=== PATIENT | male | born 1980 | race Caucasian/White ===

== ENCOUNTER 2018-11-01 11:37 | Emergency (ER) | payer SELFPAY ==
[2018-11-01 11:48] VITALS: BP 147/89; PULSE 90; RESP 16; TEMP 36.1; O2SAT 98
--- NOTE | 2018-11-01 12:05 | ED.GENADUL_ITS ---
Discharge Plan Disposition Patient Disposition: HOME Condition: Good Discharge Details Chief Complaint: Orthopedic Clinical Impression: Back pain Primary Care Provider: Charissa Vann ED Provider: Esvin Coats Home Meds and New Rx's Prescriptions: New cyclobenzaprine 10 mg tablet 10 mg PO TID Qty: 14 RF: 0 acetaminophen [Mapap Extra Strength] 500 MG tablet 1,000 mg PO Q6H 5 Days Qty: 60 RF: 0 lidocaine [Lidoderm] 1 PATCH patch 1 patch Topical Q24H Qty: 4 RF: 0 ibuprofen [Motrin IB] 200 MG tablet 600 mg PO Q6H 5 Days Qty: 60 RF: 0 Discontinued naproxen 500 MG tablet 500 mg PO BID PRN (Reason: Pain) Qty: 20 RF: 0 cyclobenzaprine 10 MG tablet 10 mg PO TID PRN (Reason: Muscle Spasm) Qty: 12 RF: 0 Discharge Instructions Instructions: Back Pain (ED) Additional Instructions: At this time you show no signs of significant spinal cord compression. You do show evidence of a notable back strain. Please use the Lidoderm patch, Tylenol, and Motrin as directed. Please use the Flexeril as directed and as needed for back pain or spasm. Do not operate heavy machinery, firearms, or swim while taking the Flexeril. No heavy lifting greater than 5 to 10 pounds for the next 1 to 2 weeks. If you notice any worsening of your symptoms, or any new symptoms such as vomiting, diarrhea, fever, chills, shortness of breath, chest pain, numbness, weakness, numbness or tingling in the groin or fainting , please return immediately to the emergency department for reevaluation. Please follow up with your primary care provider as soon as possible for reassessment and reevaluation. As always, it was a pleasure participating in your medical care today. Stand Alone Forms: Work Release Discharge Data Discharge Date/Time-TO BE ENTERED AT DEPARTURE: 11/01/18 12:46 Medical Decision Making This is a 38-year-old male who presents today for evaluation of back pain. Patient states that he is throwing his child up into the air when he caught her and felt mild pain in his back which is gradually worsened and become more severe. It is worsened with movement, bending over and lifting. Physical exam demonstrates notable left-sided paraspinal spasm. No midline focal tenderness. Neurologic exam demonstrates no focal neurologic deficits, no saddle anesthesia, he has good rectal tone, good strength, movement and reflexes. Signs and symptoms appear clinically consistent with a notable paraspinal muscle spasm. The patient may have mild radiculopathy, but there is no clinical evidence of spinal cord compression at this time. We did discuss risks and benefits of imaging, and at this time we will hold off in any additional imaging. With no fall, no neurologic deficits, and no signs of cauda equina syndrome clinically at this time I feel that no emergent radiographic imaging is currently indicated. We will recommend Lidoderm patch, NSAIDs, Flexeril, for treatment of the pain. Discussed the importance of no heavy lifting, and rest. Discussed red flags for which to return as well as the importance of close follow-up with his PCP. I have extensively reviewed the t reatment plan and discharge instructions with the patient and their family. I have addressed all patient concerns at this time. The patient and family was made aware of what symptoms to monitor for that would warrant a return to the emergency department. Discussed the plan with the patient and family, they demonstrate verbal understanding and agreement with our assessment and plan at this time. HPI General Date/Time Provider Initiated Documentation: 11/01/18 11:39 . HPI Narrative: This is a pleasant 38-year-old male who presents today for evaluation of low back pain. He states that yesterday he was throwing his child up into the air when he tried to catch the child and felt a significant strain on his back. He feels he may have heard a mild pop at that time. After that he has had notable pain in his back, particularly on the left-hand side. He denies any bowel or bladder incontinence, he denies any dysuria or hematuria. He denies any numbness or tingling in his legs or groin he denies any weakness in his legs. He denies any chest or abdominal pain. Pain is made worse with bending and lifting. Improved only slightly by NSAIDs. He has no other complaints at this time. No other modifying factors. Related Data Home Medications Medication Instructions Recorded Confirmed acetaminophen [Mapap Extra 1,000 mg PO Q6H 5 Days #60 tab 11/01/18 Strength] cyclobenzaprine 10 mg PO TID #14 tab 11/01/18 ibuprofen [Motrin Ib] 600 mg PO Q6H 5 Days #60 tab 11/01/18 lidocaine [Lidoderm] 1 patch TOPICAL Q24H #4 patch 11/01/18 Previous Rx's Medication Instructions Recorded acetaminophen [Mapap Extra 1,000 mg PO Q6H 5 Days #60 tab 11/01/18 Strength] cyclobenzaprine 10 mg PO TID #14 tab 11/01/18 ibuprofen [Motrin Ib] 600 mg PO Q6H 5 Days #60 tab 11/01/18 lidocaine [Lidoderm] 1 patch TOPICAL Q24H #4 patch 11/01/18 Allergies Allergy/AdvReac Type Severity Reaction Status Date / Time No Known Allergies Allergy Unverified 02/25/17 19:28 General Stated Complaint: Orthopedic FADIA: 4 Review of Systems Review of Systems All systems reviewed & are unremarkable except as noted in HPI and below PFSH Social History Smoking/Tobacco Use Status: Current every day Tobacco Type: cigarettes Drug use: Never Do you feel safe in your relationship?: Yes Exam Narrative Exam Narrative: 1.Const: Well-nourished, Well-developed, appearing stated age 2.Eyes: PERRL, no conjunctival injection, and symmetrical lids. 3.ENT: Atraumatic external nose and ears. Moist MM. Neck: Symmetric, trachea midline, No thyromegaly. 4.CVS: +S1/S2, No murmurs or gallops. Peripheral pulses 2+ and equal in all extremities. Brisk capillary refill in all extremities. 5.RESP: Unlabored respiratory effort. Clear to auscultation bilaterally. No wheezes rales or rhonchi 6.GI: Soft, Nontender/Nondistended, No hepatosplenomegaly. No guarding or rebound. 7.MSK: Normocephalic/Atraumatic, Extremities w/o deformity or ttp No cyanosis or clubbing, Normal movement of all extremities. No midline tenderness to palpation over the CTLS spine. Normal ROM in flexion, extension, side bend, and rotation. Patient has +5 out of 5 strength in the lower extremities in dorsiflexion and plantarflexion, knee flexion and extension, hip flexion and extension. There is +2 over 2 dorsalis pedis pulses bilaterally. There is normal sensation to the skin with light touch at the foot, knee, and hip. Normal saddle sensation. Good sensation over the deep sural nerve area bilaterally. Rectal exam demonstrates good perirectal tone, normal perirectal sensation. Reflexes are +2 over 4 in the patellar reflex bilaterally. +5 out of 5 strength in the medial, ulnar, radial nerve distribution bilaterally in the hands as well as intact light touch sensation to these dermatomes on the hands. Notable paraspinal muscle spasm specifically on the left and side over T10-L2. Straight leg raise does worsen the patient's pain bilaterally, however there is no associated numbness or tingling with straight leg raise. 8.Skin: Warm, Dry. No rashes or lesions. 9.Neuro: occupational health coordinator II-XII grossly intact. Sensation grossly intact, no focal neurologic deficits. 10.Psych: (AAO) x3. Appropriate mood and affect Course Vital Signs Temperature 36.1 C L 11/01/18 11:48 Pulse 90 11/01/18 11:48 Respiratory Rate 16 11/01/18 11:48 Blood Pressure 147/89 H 11/01/18 11:48 Pulse Oximetry 98 11/01/18 11:48 Temperature 36.1 C L 11/01/18 11:48 Temperature Source Temporal Artery Scan 11/01/18 11:48 Pulse 90 11/01/18 11:48 Respiratory Rate 16 11/01/18 11:48 Blood Pressure 147/89 H 11/01/18 11:48 Pulse Oximetry 98 11/01/18 11:48 Oxygen Delivery Method Room Air 11/01/18 11:48 Oxygen Flow Rate 0 11/01/18 11:48
[2018-11-01] MEDS: Dexamethasone 4 MG TAB 12 MG PO (12:21)
[2018-11-01] MEDS: Lidocaine 5% Patch 1 PATCH TP (12:22)
[2018-11-01] MEDS: Ketorolac 30 MG/ML VIAL IM (12:33)
[2018-11-01 12:41] VITALS: BP 147/89; RESP 14
== END 2018-11-01 12:46 | disposition home or self-care (01) ==
LOC: ER 12:36
PROVIDERS: Emergency Provider Student in an Organized Health Care Education/Training Program; PCP Nurse Practitioner Family
DX: M54.5 Low back pain (principal); S39.012A Strain of muscle, fascia and tendon of lower back, initial encounter; X50.9XXA Other and unspecified overexertion or strenuous movements or postures, initial encounter; M62.830 Muscle spasm of back
CPT/HCPCS: 96372; 99284; 99283; J1885; J8540

== ENCOUNTER 2019-01-27 15:47 | Emergency (ER) | payer SELFPAY ==
[2019-01-27 15:50] VITALS: BP 156/91; PULSE 90; RESP 18; TEMP 36.1; O2SAT 97
--- NOTE | 2019-01-27 16:10 | ED.GENADUL_ITS ---
Discharge Plan Disposition Patient Disposition: HOME Condition: Improving Discharge Details Chief Complaint: Nausea/Vomit/Diar Clinical Impression: Gastroenteritis Primary Care Provider: Charissa Vann ED Provider: Chris Gamboa Home Meds and New Rx's Prescriptions: New ondansetron HCl [Zofran] 4 mg tablet 4 mg PO QID PRN (Reason: nausea and vomiting) Qty: 10 RF: 0 famotidine 20 mg tablet 20 mg PO DAILY Qty: 14 RF: 0 Discharge Instructions Instructions: Gastroenteritis (ED) Additional Instructions: Small, frequent sips of fluids to maintain hydration. Zofran and as needed for nausea, as prescribed. Please take famotidine as prescribed for 2 weeks. Return to the ER for any acute concerns Medical Decision Making 38-year-old male presents from home stating he has had 3 days of nausea and vomiting that are improving today and now without evidence of emesis at all today. He reports work is requested he be evaluated medically prior to return. He is afebrile, well-appearing. He has a history of GERD and mild epigastric tenderness on exam. He does not demonstrate evidence of peritonitis. Will recommend that he take antacid for 2 weeks. Will offer Zofran if needed for home. He stable and improved at this time. HPI General Mode of arrival: ambulatory . Date/Time Provider Initiated Documentation: 01/27/19 15:49 . Limitations to Documentation: no limitations . Information obtained by: patient . History of Present Illness 38 year old M presents to the emergency department with the chief complaint of Nausea and vomiting for 4 days, improving, described as mild, and is localized to the abdomen. Patient reports no radiation. Patient started experiencing this day(s) and it has been now resolved. No relieving factors improve symptom(s), Eating worsens symptoms . Patient notes no other symptoms.; denies fever/chills and syncope. Patient did receive the following treatments prior to arrival, none Related Data Home Medications Medication Instructions Recorded Confirmed famotidine 20 mg PO DAILY #14 tab 01/27/19 ondansetron HCl [Zofran] 4 mg PO QID PRN #10 tab 01/27/19 Previous Rx's Medication Instructions Recorded famotidine 20 mg PO DAILY #14 tab 01/27/19 ondansetron HCl [Zofran] 4 mg PO QID PRN #10 tab 01/27/19 Allergies Allergy/AdvReac Type Severity Reaction Status Date / Time No Known Allergies Allergy Unverified 01/27/19 15:53 General Stated Complaint: Nausea/Vomit/Diar FADIA: 4 Review of Systems Narrative: No fever. Positive sick contacts other family members at home. Question suspicious food intake. No diarrhea. No hematochezia. Improving today without vomiting. 6 systems reviewed and otherwise negative [facility] Social History Smoking/Tobacco Use Status: Current every day Tobacco Type: cigarettes Drug use: Never Do you feel safe at home: Yes Do you feel safe in your relationship?: Yes Exam Narrative Exam Narrative: GEN: awake, alert, oriented 3. Pleasant, well groomed, interactive. HEAD: Normocephalic, atraumatic ENT: Mucous membranes moist, oropharynx unremarkable, External ear exam unremarkable EYES: PERRL, EOMI NECK: Full ROM, no ROMAINE, no menigismus CHEST/RESP: Nontender, clear to auscultation bilateral, no wheeze/rhonchi/rales CARDIOVASCULAR: RRR, no murmur, rub norberto. 2+ Rad pulse bilateral ABDOMEN: Soft, minimal epigastric tenderness, no rebound or guarding, no mass. +Bowel sounds EXT: Full ROM, no edema, no rash Neuro: Grossly normal neurologic exam, conversant, interactive. Psych: Speech fluent, thoughts congruent, affect normal Course Vital Signs Vital signs: Vital Signs Temperature 36.1 C L 01/27/19 15:50 Pulse 90 01/27/19 15:50 Respiratory Rate 18 01/27/19 15:50 Blood Pressure 156/91 H 01/27/19 15:50 Pulse Oximetry 97 01/27/19 15:50 Temperature 36.1 C L 01/27/19 15:50 Temperature Source Skin 01/27/19 15:50 Pulse 90 01/27/19 15:50 Respiratory Rate 18 01/27/19 15:50 Respiratory Effort Non-Labored 01/27/19 15:52 Blood Pressure 156/91 H 01/27/19 15:50 Blood Pressure Position Sitting 01/27/19 15:50 Pulse Oximetry 97 01/27/19 15:50 Oxygen Delivery Method Room Air 01/27/19 15:50 Oxygen Flow Rate 0 01/27/19 15:50 Pain Level 0 01/27/19 15:50
== END 2019-01-27 16:20 | disposition home or self-care (01) ==
PROVIDERS: Emergency Provider Emergency Medicine; PCP Nurse Practitioner Family
DX: K52.9 Noninfective gastroenteritis and colitis, unspecified (principal)
CPT/HCPCS: 99283

== ENCOUNTER 2019-02-24 10:39 | Emergency (ER) | payer SELFPAY ==
[2019-02-24 10:46] VITALS: BP 168/105; PULSE 93; RESP 16; TEMP 37; O2SAT 98
--- NOTE | 2019-02-24 11:03 | ED.GENADUL_ITS ---
Discharge Plan Disposition Patient Disposition: HOME Condition: Improving Discharge Details Chief Complaint: Abd Prob Clinical Impression: Gastritis Primary Care Provider: Charissa Vann ED Provider: Chris Gamboa Home Meds and New Rx's Prescriptions: New esomeprazole magnesium 40 mg capsule,delayed release(DR/EC) 40 mg PO DAILY Qty: 30 RF: 2 No Action Otc Antacid RF: 0 Discharge Instructions Instructions: Gastritis (ED) Additional Instructions: Begin ease omeprazole 40 mg daily as prescribed. May use Tums twice daily if needed for recurrent discomfort. Please continue to minimize use of caffeinated beverages, tomato-based foods or fatty/fried foods. Continue efforts to decrease smoking. Sleep at the head of the bed elevated. Follow through with your plan to reestablish primary care and enroll in your company health plan. Return to the emergency department for any acute concerns. Medical Decision Making 38-year-old male smoker with a fairly robust use of coffee, history of recurrent GERD, states is been unable to afford recently prescribed famotidine and now with recurrent GERD symptoms causing burning discomfort is worse lying down and worse after eating [place] foods with red sauce over days time. He is well-appearing with some hypertension on exam but otherwise normal vital signs. His exam is consistent with a mild gastritis. Reviewed options with him including enrolling in workplace health care plan which he is anticipating. Will prescribe ease omeprazole 40 mg daily and I provided him with a discount drug coupon for a $16 willis. He understands homecare, lifestyle modifications, as well as return precautions for emergent evaluation. He stable and appropriate for discharge to home. HPI General Mode of arrival: ambulatory . Date/Time Provider Initiated Documentation: 02/24/19 10:46 . Limitations to Documentation: no limitations . Information obtained by: patient . History of Present Illness 38 year old M presents to the emergency department with the chief complaint of GERD symptoms, recurrent, described as moderate, Quality is described as dull, and is localized to the abdomen. Patient neck. Patient started experiencing this month(s) and it has been intermittent. No relieving factors improve s ymptom(s), Other factors that worsen symptoms (Tomato sauce and spicy foods) . Patient notes other (No dark or bloody stool); denies chest pain and fever/chills. Patient did receive the following treatments prior to arrival, other ([id number] antiacid) Related Data Home Medications Medication Instructions Recorded Confirmed Otc Antacid 02/24/19 esomeprazole magnesium 40 mg PO DAILY #30 cap 02/24/19 Previous Rx's Medication Instructions Recorded esomeprazole magnesium 40 mg PO DAILY #30 cap 02/24/19 Allergies Allergy/AdvReac Type Severity Reaction Status Date / Time No Known Allergies Allergy Unverified 02/24/19 10:49 General Stated Complaint: Abd Prob FADIA: 3 Review of Systems Narrative: 6 systems reviewed and otherwise negative [facility] Social History Smoking/Tobacco Use Status: Current every day Tobacco Type: cigarettes Drug use: Never Do you feel safe at home: Yes Do you feel safe in your relationship?: Yes Exam Narrative Exam Narrative: GEN: awake, alert, oriented 3. Pleasant, well groomed, interactive. HEAD: Normocephalic, atraumatic ENT: Mucous membranes moist, oropharynx unremarkable, External ear exam unremarkable EYES: PERRL, EOMI NECK: Full ROM, no ROMAINE, no menigismus CHEST/RESP: Nontender, clear to auscultation bilateral, no wheeze/rhonchi/rales CARDIOVASCULAR: RRR, no murmur, rub norberto. 2+ Rad pulse bilateral ABDOMEN: Soft, tender in epigastrium without rebound or guarding, no Goldstein sign, no mass. +Bowel sounds EXT: Full ROM, no edema, no rash Neuro: Grossly normal neurologic exam, conversant, interactive. Psych: Speech fluent, thoughts congruent, affect normal Course Vital Signs Vital signs: Vital Signs Temperature 37 C 02/24/19 10:46 Pulse 93 H 02/24/19 10:46 Respiratory Rate 16 02/24/19 10:46 Blood Pressure 168/105 H 02/24/19 10:46 Pulse Oximetry 98 02/24/19 10:46 Temperature 37 C 02/24/19 10:46 Temperature Source Skin 02/24/19 10:46 Pulse 93 H 02/24/19 10:46 Respiratory Rate 16 02/24/19 10:46 Respiratory Effort Non-Labored 02/24/19 10:46 Blood Pressure 168/105 H 02/24/19 10:46 Blood Pressure Position Sitting 02/24/19 10:46 Pulse Oximetry 98 02/24/19 10:46 Oxygen Delivery Method Room Air 02/24/19 10:46 Oxygen Flow Rate 0 02/24/19 10:46 Pain Level 6 02/24/19 10:46
[2019-02-24] MEDS: Mylanta Suspension 30 ML CUP (11:16)
[2019-02-24] MEDS: Lidocaine 2% Viscous 15 ML CUP (11:16)
== END 2019-02-24 11:17 | disposition home or self-care (01) ==
PROVIDERS: Emergency Provider Emergency Medicine; PCP Nurse Practitioner Family
DX: K29.00 Acute gastritis without bleeding (principal); I10 Essential (primary) hypertension; F17.210 Nicotine dependence, cigarettes, uncomplicated
CPT/HCPCS: 99283

== ENCOUNTER 2019-06-14 18:34 | Outpatient (REF) | payer BC, SELFPAY ==
[2019-06-17 09:33] LABS: SARS-CoV-2 RNA Undetected (Undetected)
[2019-06-17 12:08] LABS: SARS-CoV-2 Specimen Source Nasopharynx
== END 2019-06-14 18:54 ==
LOC: NCHCN 18:34
PROVIDERS: PCP Nurse Practitioner Family; Visit Provider Physician Assistant
DX: R05 Cough (principal); Z20.828 Contact with and (suspected) exposure to other viral communicable diseases
CPT/HCPCS: U0003

== ENCOUNTER 2019-07-04 21:21 | Emergency (ER) | payer BC, SELFPAY ==
[2019-07-04] VITALS (7 sets, daily range): BP systolic 119–142; BP diastolic 66–86; PULSE 92–112; RESP 12–24; TEMP 37; O2SAT 14–99
--- NOTE | 2019-07-04 21:27 | ED.GENADUL_ITS ---
Discharge Plan Disposition Patient Disposition: HOME Condition: Stable Discharge Details Chief Complaint: GI Bleed Clinical Impression: Bleeding hemorrhoids, Elevated lactic acid level, Alcohol withdrawal Primary Care Provider: Charissa Vann ED Provider: Bhupinder Wilson Home Meds and New Rx's Prescriptions: New doxycycline hyclate 100 mg capsule 100 mg PO BID Qty: 14 RF: 0 No Action cetirizine 10 mg tablet 10 mg PO 5XW RF: 0 albuterol sulfate [ProAir HFA] 90 mcg/actuation HFA aerosol inhaler 2 puff INHALATION PRN PRNRF: 0 Discharge Instructions Instructions: Hemorrhoids (ED), Alcohol Withdrawal (ED) Additional Instructions: At this time I have voiced my concern however you do not wish to be admitted to our facility or the list of detox is necessary. I have set you up an appointment tomorrow morning at 9:30 AM [address] our surgeon Dr. Jaimes who is aware of your visit to our ER. Please watch for new or worsening symptoms and return to the ER for any concerns Referrals: Mildred Jaimes MD [ [facility] STAFF PHYSICIAN] - 07/05/19 9:30 am Medical Decision Making 38-year-old gentleman who reports drinking heavily over the past few days presents with nausea, abdominal pain and rectal pain. He admits to 15-year history of bleeding hemorrhoids however now increased pain and unable to reduce them. He does appear uncomfortable, tachycardic at 108. Patient reports that he did drink just prior to arrival, low suspicion for acute withdrawal. Will obtain IV access, give IV Zofran, IV fluids, obtain routine laboratory values including CBC, CMP, lactate, alcohol level, will obtain CT abdomen and pelvis. I am able to visualize bleeding from the hemorrhoid. The area looks extremely friable and with severe discomfort, concern for colon involvement. Patient went to CT and upon return, heart rate 104. Lactate 3.8. White blood cell 11.21 hemoglobin 17.8 hematocrit 50.6 platelet 307. Sodium 143 potassium 3.6 creatinine 0.81, GFR greater than 60. AST 50, ALT 144 No evidence of anemia. Heart rate is now in the 90s. CT resulted. I discussed findings with patient regarding his laboratory values. I also discussed the case with Dr. Coats. Recommended reaching out to our surgical team to discuss treatment for the patient's hemorrhoids and after the patient receives IV fluid rechecking a lactate. Patient received 1 full liter of fluid, a second liter was hung, repeat lactate was 2.8, certainly trending downward. I spoke with Dr. Jaimes, surgery. She will be happy to see the patient in her office tomorrow morning at 930. Upon reevaluation heart rate is now up to 104 and patient is reporting increased discomfort in his rectum. His examination given the degree of discomfort, friability, bleeding, is certainly limited. I do not believe that he actively has a thrombosed hemorrhoid that I can alleviate emergently here in the ER. There is no obvious abscess, spreading erythema, fissure, etc. He is afebrile. Given his degree of discomfort and the extremely difficult evaluation, I will cover him with antibiotics for potential proctitis, 500 IV ceftriaxone 100 p.o. doxycycline given. Patient is requesting Tylenol for his discomfort, tells me he does not want narcotic medication. I explained to the patient very candidly my concern. I feel as though he is likely beginning to withdraw from alcohol and would benefit from detox, patient does not want to be admitted to our facility for detox, does not want to go to a detox facility. He requests to be discharged home. He is awake, alert, and has capacity to make his own decisions. I discussed with him the importance of outpatient follow-up with Dr. Jaimes tomorrow for likely more definitive care. He was encouraged to return to the ER for any evolving symptoms or concerns Medical Records Medical records reviewed: Yes I reviewed the patient's medical records. Imaging Data Radiologic Study: Attestation: I personally reviewed and interpreted this imaging study as follows: Imaging: CT Scan Radiologist's impression: Read by virtual radiology as soft tissue fullness in the distal rectum may be related to hemorrhoids. Distended bladder. Fatty infiltration of the liver. Small right inguinal hernia containing fat Lab Data Lab results reviewed: Yes I reviewed the patient's lab results. Lab results narrative: Laboratory Tests Range/Units 07/04/19 07/04/19 07/04/19 22:00 22:00 22:00 WBC (4.4-10.8) k/cumm RBC (4.50-6.00) m/cumm Hgb (13.5-17.5) g/dL Hct (40.0-50.0) % MCV (80-95) fL MCH (27.0-33.0) pg MCHC (32.0-36.0) g/dL RDW (11.8-14.1) % Plt Count (130-400) x1000/uL MPV (8.0-11.0) fL Immature Gran % % Neutrophils % Lymphocytes % Monocytes % Eosinophils % Basophils % Absolute Neutrophils (1.2-6.7) k/cumm Absolute Lymphocytes (1.2-3.4) k/cumm Absolute Monocytes (0.11-0.7) k/cumm Absolute Eosinophils (0.0-0.7) k/cumm Absolute Basophils (0.0-0.2) k/cumm RBC Morphology Polychromasia Basophilic Stippling PT (9.3-11.0) sec 10.3 INR (0.9-1.1) 1.0 APTT (21.0-31.4) sec 24.9 Sodium (136-145) mmol/L Potassium (3.5-5.1) mmol/L Chloride (98-107) mmol/L Carbon Dioxide (21.0-32.0) mmol/L Anion Gap (3-11) mmol/L BUN (7-18) mg/dL Creatinine (0.70-1.30) mg/dL Estimated GFR/1.73 m2 (mL/min/1.73m2) Glucose (74-106) mg/dL Lactate (0.6-1.4) mmol/L 3.8 H* Calcium (8.5-10.1) mg/dL Total Bilirubin (0.2-1.0) mg/dL AST (15-37) U/L ALT (16-63) U/L Alkaline Phosphatase (46-116) U/L Total Protein (6.4-8.2) g/dL Albumin (3.4-5.0) g/dL Lipase (73-393) U/L 53 Ethyl Alcohol (<3) mg/dL Range/Units 07/04/19 07/04/19 07/04/19 22:00 22:00 22:00 WBC (4.4-10.8) k/cumm 11.21 H RBC (4.50-6.00) m/cumm 5.87 Hgb (13.5-17.5) g/dL 17.8 H Hct (40.0-50.0) % 50.6 H MCV (80-95) fL 86.2 MCH (27.0-33.0) pg 30.3 MCHC (32.0-36.0) g/dL 35.2 RDW (11.8-14.1) % 12.3 Plt Count (130-400) x1000/uL 307 MPV (8.0-11.0) fL 9.8 Immature Gran % % 0.4 Neutrophils % 66.7 Lymphocytes % 23.7 Monocytes % 8.7 Eosinophils % 0.3 Basophils % 0.2 Absolute Neutrophils (1.2-6.7) k/cumm 7.48 H Absolute Lymphocytes (1.2-3.4) k/cumm 2.66 Absolute Monocytes (0.11-0.7) k/cumm 0.98 H Absolute Eosinophils (0.0-0.7) k/cumm 0.03 Absolute Basophils (0.0-0.2) k/cumm 0.02 RBC Morphology See below Polychromasia Present Basophilic Stippling Present PT (9.3-11.0) sec INR (0.9-1.1) APTT (21.0-31.4) sec Sodium (136-145) mmol/L 143 Potassium (3.5-5.1) mmol/L 3.6 Chloride (98-107) mmol/L 104 Carbon Dioxide (21.0-32.0) mmol/L 27.4 Anion Gap (3-11) mmol/L 11.6 H BUN (7-18) mg/dL 12 Creatinine (0.70-1.30) mg/dL 0.81 Estimated GFR/1.73 m2 (mL/min/1.73m2) >= 60.00 Glucose (74-106) mg/dL 110 H Lactate (0.6-1.4) mmol/L Calcium (8.5-10.1) mg/dL 8.8 Total Bilirubin (0.2-1.0) mg/dL 0.6 AST (15-37) U/L 50 H ALT (16-63) U/L 144 H Alkaline Phosphatase (46-116) U/L 82 Total Protein (6.4-8.2) g/dL 7.2 Albumin (3.4-5.0) g/dL 4.1 Lipase (73-393) U/L Ethyl Alcohol (<3) mg/dL 216.3 Labs: Repeat lactate of 2.8 HPI General Mode of arrival: ambulatory . Date/Time Provider Initiated Documentation: 07/04/19 21:24 . Limitations to Documentation: no limitations . Information obtained by: patient . HPI Narrative: This is a 38-year-old gentleman who reports a history of alcohol abuse, chronic bleeding hemorrhoids, presented to the ER today with multiple complaints. He reports that he has been on a 3-1/2-day binge drinking episode, having drank 2-1/2 gallons of hard liquor during that timeframe. He reports diffuse mild abdominal pain worse in the lower quadrants, nausea but no vomiting. He reports 15-year history of hemorrhoids that he can typically push back in but over the past 2 days he has been unable to do so. He reports severe pain at the site of his hemorrhoids, pain is worse with bowel movements, and they are not bleeding. He feels as though they may be bleeding more than usual. He openly admits that he blacked out over the past few days and does not know how his hemorrhoids have gotten so severe. Patient denies to me that he feels as though he has a drinking problem although he does not know what brought on this drinking episode over the past several days. He does not wish to go to detox currently. He denies any drug use. Related Data Home Medications Medication Instructions Recorded Confirmed albuterol sulfate [ProAir HFA] 2 puff INHALATION PRN PRN 07/04/19 07/04/19 cetirizine 10 mg PO 5XW 07/04/19 07/04/19 doxycycline hyclate 100 mg PO BID #14 cap 07/04/19 Previous Rx's Medication Instructions Recorded doxycycline hyclate 100 mg PO BID #14 cap 07/04/19 Allergies Allergy/AdvReac Type Severity Reaction Status Date / Time No Known Allergies Allergy Unverified 07/04/19 21:33 General FADIA: 3 Review of Systems Constitutional Constitutional: Denies fatigue, Denies fever(s), Denies headache(s) and Denies weakness Eyes Eyes: Denies change in vision ENT Ears, Nose, Mouth, and Throat: Denies headache(s) and Denies sore throat Cardiovascular Cardiovascular: Denies chest pain and Denies dyspnea Respiratory Respiratory: Denies cough and Denies dyspnea Gastrointestinal Gastrointestinal: Reports abdominal pain, Denies melena, Reports hematochezia, D enies constipation, Reports diarrhea, Reports nausea and Denies vomiting Genitourinary Genitourinary: Denies dysuria Musculoskeletal Musculoskeletal: Denies back pain, Denies numbness and Denies tingling Integumentary/Breasts Skin/Breast: Denies rash Neurologic Neurologic: Denies headache(s), Denies numbness, Denies tingling and Denies weakness Psychiatric Psychiatric: Reports anxiety Endocrine Endocrine: Denies fatigue Hematologic/Lymphatic Hematologic/Lymphatic: Denies easy bruising ON LICENSE OF [facility] Medical History Alcohol abuse (Chronic) Bleeding hemorrhoid (Acute) Social History Smoking/Tobacco Use Status: Current every day Tobacco Type: cigarettes Alcohol Intake: current Alcohol Intake frequency: 0-2 drinks per day Alcohol type: hard liquor Drug use: Never Substance use type: does not use Do you feel safe at home: Yes Do you feel safe in your relationship?: Yes Exam Const General: cooperative and no acute distress Orientation: alert, awake and oriented x3 HENMT Head: normal to inspection, normocephalic and atraumatic Mouth: moist mucous membranes Throat: posterior oropharynx normal Eyes General: appearance normal, both eyes and all related structures Conjunctivae: conjunctivae normal Sclera: sclerae normal Neck Neck: normal visual inspection, full ROM, no lymphadenopathy, trachea midline and supple Chest Chest: normal inspection of the chest Resp Effort & Inspection: normal respiratory effort and able to speak in complete sentences Auscultation: clear to auscultation bilaterally Cardio Rate: tachycardic (Rate of 112) Rhythm: regular rhythm GI Inspection: normal to inspection Palpation: soft, not firm, no guarding, not rigid and tender (Diffuse discomfort worse in the lower quadrants, to moderate palpation) with no rebound tenderness Auscultation: normal bowel sounds Rectal Exam: deferred, hemorrhoids (12 position, small, tender, friable soft hemorrhoid, minimal bleeding), tenderness (6 position, large hemorrhoid, firm but not thrombosed, with bleeding), visual inspection abnormal excoriations and hemorrhoids (Extremely friable, unable to reduce) and other (Internal rectal exam not performed secondary to pain) Back/Spine/Pelvis Back: No back tenderness Skin General skin exam: no rashes or lesions noted Neuro General: patient alert, patient awake, moves all extremities and no focal motor deficits Motor: muscle tone normal throughout Sensory Exam: no sensory deficits noted Extrem General: normal to inspection, full ROM, capillary refill normal and no pedal edema Psych Appearance: grossly normal Mental Status: mental status grossly normal
--- NOTE | 2019-07-04 21:45 | DI.CT_ITS ---
EXAM: CT ABDOMEN PELVIS W CLINICAL HISTORY: Alcohol abuse, abdominal pain, nausea, proctitis. TECHNIQUE: Imaging Protocol: Axial computed tomography images with coronal and sagittal reformatted images were created and reviewed CONTRAST MATERIAL: Intravenous: Omnipaque 350 Contrast volume:structured data in ml Oral: yes / no COMPARISON: No exams were available for comparison FINDINGS: ABDOMEN: Lung Bases: Normal where visualized. Liver: Mild fatty infiltration. No measurable mass. Gallbladder and biliary tract: No radiodense calculus or dilation. Pancreas: Normal density, no abnormal calcifications or inflammatory process. Spleen: Normal. Kidneys: Normal size, contour and axis. No radiodense stones or obstructive uropathy. No masses seen. Adrenal glands: No masses seen. Abdominal Aorta: Abdominal portion non-dilated. PELVIS: Bladder: Distended, no gross wall thickening. Bowel: There is a normal quantity of stool. There is no abnormal bowel distention. Appendix appears normal. There is a question of some mild stranding in the perianal area. There is no evidence of a n abscess.. Peritoneal cavity: No ascites, collection or mesenteric inflammatory response. Bones: Within normal limits. Reproductive organs: Within normal limits. Lymph nodes: Unremarkable. There is a small fatty containing right inguinal hernia. Impression: Mild fatty liver. Question of mild perianal soft tissue swelling. DATA REPOSITORY: All CT scans at this facility are submitted to the National Radiology Data Registry (NRDR) Dose Index Registry (DIR) with the [employer] (ACR). RADIATION OPTIMIZATION: All CT scans at this facility use at least one of these dose optimization te chniques: automated exposure control; mA and/or kV adjustment per patient size (includes targeted exa ms where dose is matched to clinical indication); or iterative reconstruction.
[2019-07-04 22:09] LABS: Lactate 3.8 mmol/L (0.6-1.4)
[2019-07-04 22:10] LABS: Abs Immature Grans 0.04 k/cumm (0.0-0.09); Absolute Basophil Count 0.02 k/cumm (0.0-0.2); Absolute Eosinophil Count 0.03 k/cumm (0.0-0.7); Absolute Lymphocyte Count 2.66 k/cumm (1.2-3.4); Basophils % 0.2; Eosinophils % 0.3; HCT 50.6 % (40.0-50.0); Immature Grans % 0.4 %; Lymphocytes % 23.7; Mean Corpuscular Volume 86.2 fL (80-95); Mean Platelet Volume 9.8 fL (8.0-11.0); Monocytes % 8.7; Neutrophils % 66.7; Platelet Count 307 x1000/uL (130-400); RBC 5.87 m/cumm (4.50-6.00); RBC Distribution Width 12.3 % (11.8-14.1); White Blood Cell Count 11.21 k/cumm (4.4-10.8)
[2019-07-04] MEDS: Normal Saline - Diluent 50 ML VIAL IV (22:11)
[2019-07-04] MEDS: Omnipaque 350 MG/ML 100 ML BTL IJ (22:11)
[2019-07-04] MEDS: Normal Saline Flush 10 ML SYR IVP (22:16)
[2019-07-04 22:22] LABS: ETHANOL BLOOD 216.3 mg/dL (<3); Lipase 53 U/L (73-393)
[2019-07-04] MEDS: Normal Saline 1,000 ML 1000 ML IV ×2 (22:22→22:23)
[2019-07-04] MEDS: Ondansetron 4 MG/2 ML VIAL IVP (22:23)
[2019-07-04 22:24] LABS: Absolute Monocyte Count 0.98 k/cumm (0.11-0.7); Absolute Neutrophil Count 7.48 k/cumm (1.2-6.7); HGB 17.8 g/dL (13.5-17.5); Mean Corp. HGB Concentration 35.2 g/dL (32.0-36.0); Mean Corpuscular Hemoglobin 30.3 pg (27.0-33.0)
[2019-07-04 22:32] LABS: ALT 144 U/L (16-63); AST 50 U/L (15-37); Albumin 4.1 g/dL (3.4-5.0); Alkaline Phosphatase 82 U/L (46-116); Anion Gap 11.6 mmol/L (3-11); BUN 12 mg/dL (7-18); Bilirubin, Total 0.6 mg/dL (0.2-1.0); CO2 27.4 mmol/L (21.0-32.0); CREATININE 0.81 mg/dL (0.70-1.30); Calcium 8.8 mg/dL (8.5-10.1); Chloride 104 mmol/L (98-107); Glucose 110 mg/dL (74-106); Potassium 3.6 mmol/L (3.5-5.1); Sodium 143 mmol/L (136-145); Total Protein 7.2 g/dL (6.4-8.2)
[2019-07-04 22:33] LABS: Basophilic Stippling Present; Polychromasia Present
--- NOTE | 2019-07-04 22:43 | DI.VRAD_ITS ---
PROCEDURE INFORMATION: Exam: CT Abdomen And Pelvis With Contrast Exam date and time: 07/04/2019 9:57 PM Age: 38 years old Clinical indication: Generalized; Patient HX: Alcohol abuse, abdominal pain, nausea, proctitis TECHNIQUE: Imaging protocol: Computed tomography of the abdomen and pelvis with intravenous contrast. Radiation optimization: All CT scans at this facility use at least one of these dose optimization techniques: automated exposure control; mA and/or kV adjustment per patient size (includes targeted exams where dose is matched to clinical indication); or iterative reconstruction. Contrast material: OMNIPAQUE 350; Contrast volume: 100 ml; Contrast route: IV; COMPARISON: No relevant prior studies available. FINDINGS: Liver: There is fatty infiltration of the liver. Gallbladder and bile ducts: No calcified gallstones. No significant biliary dilation. Pancreas: Unremarkable. Spleen: Unremarkable. Adrenals: Unremarkable. Kidneys and ureters: Unremarkable. No hydronephrosis. Stomach and bowel: There is soft tissue fullness seen in the region of the distal rectum. No bowel obstruction. Scattered colonic diverticuli without evidence of diverticulitis. Appendix: No evidence of appendicitis. Intraperitoneal space: No free air or free fluid. Vasculature: No aortic aneurysm. No aortic dissection. Lymph nodes: No pathologically enlarged lymph nodes. Bladder: The bladder is distended. Reproductive: Unremarkable as visualized. Bones/joints: No acute fracture. No destructive bone lesion. Soft tissues: Small right inguinal hernia containing fat. IMPRESSION: 1. Soft tissue fullness in the distal rectum may be related to hemorrhoids. 2. Distended bladder. 3. Additional incidental/non-emergent findings, as above. Dictated and Authenticated by: William Veras MD. Ordering:PRASANTH Roe MD
[2019-07-04 22:45] LABS: PTT Activated 24.9 sec (21.0-31.4); Prothrombin Time 10.3 sec (9.3-11.0)
[2019-07-04 23:22] LABS: Lactate 2.8 mmol/L (0.6-1.4)
[2019-07-04] MEDS: Acetaminophen 500 MG TAB 1000 MG PO (23:31)
[2019-07-04] MEDS: Doxycycline Hyclate 100 MG CAP PO (23:31)
[2019-07-04] MEDS: cefTRIAXone 1 GM VIAL (23:32)
== END 2019-07-05 | disposition home or self-care (01) ==
PROVIDERS: Emergency Provider Physician Assistant; PCP Nurse Practitioner Family
DX: R74.0 Nonspecific elevation of levels of transaminase and lactic acid dehydrogenase [LDH] (principal); K64.9 Unspecified hemorrhoids; F10.239 Alcohol dependence with withdrawal, unspecified
CPT/HCPCS: 36415; 80053; 83690; 96361; 96374; 99285; 74177; 80320; 83605; 85025; 85610; 85730; J0696; J2405; J3490

== ENCOUNTER 2019-07-05 19:24 | Emergency (ER) | payer BC, SELFPAY ==
[2019-07-05 19:25] VITALS: BP 163/99; PULSE 109; RESP 20; TEMP 36.9; O2SAT 96
--- NOTE | 2019-07-05 19:29 | W.ED.GENAD ---
Discharge Plan Disposition Patient Disposition: HOME Condition: Stable Discharge Details Chief Complaint: GI Bleed Clinical Impression: Bleeding hemorrhoids Primary Care Provider: Charissa Vann ED Provider: Benito Callahan Home Meds and New Rx's Prescriptions: New lidocaine 5 % ointment 1 applic TP TID PRN (Reason: pain) Qty: 30 RF: 0 Continued cetirizine 10 mg tablet 10 mg PO 5XW RF: 0 albuterol sulfate [ProAir HFA] 90 mcg/actuation HFA aerosol inhaler 2 puff INHALATION PRN PRNRF: 0 doxycycline hyclate 100 mg capsule 100 mg PO BID Qty: 14 RF: 0 Discharge Instructions Instructions: Hemorrhoids (ED), Abuse of Alcohol (ED) Additional Instructions: call the general surgery clinic Friday for an appointment use the hydrocortisone cream three times daily and the lidocaine 3 times daily as well if you feel more ill or have uncontrolled bleeding and feel lightheaded or short of breath return to the emergency department Referrals: Marina Rangel DO [OSTEOPATHIC DOCTOR] - Medical Decision Making 38 yo male who was seen yesterday for rectal bleeding and diagnosed with likely thrombosed external hemorrhoid and d/c'd to f/u with general surgery today but he unfortunately missed this appointment this morning and comes in with increasing pain and states constant rectal bleeding all day per patient. He is uncomfortable on exam. He has a large mass at the entrance of the rectum that I am unable to discern if it's actually a hemorrhoid or possibly a rectal prolapse. will repeat cbc and consult general surgery for evaluation labs stable. Seen by Dr. Rangel and because of his alcohol use disorder can't bring to the OR tonight to remove the hemorrhoid. She advised topical steroids and will f/u with him in the clinic friday Differential Diagnosis Differential Diagnosis: external hemorrhoid, rectal prolapse Medical Records Medical records reviewed: Yes I reviewed the patient's medical records. Lab Data Lab results reviewed: Yes I reviewed the patient's lab results. HPI General Mode of arrival: EMS. Date/Time Provider Initiated Documentation: 07/05/19 20:08. Limitations to Documentation: no limitations. Information obtained by: patient. History of Present Illness 38 year old M presents to the emergency department with the chief complaint of rectal bleeding, described as moderate, Patient started experiencing this day(s) (2) and it has been constant. No relieving factors improve symptom(s), No exacerbating factors reported . Patient did receive the following treatments prior to arrival, none Related Data Home Medications Medication Instructions Recorded Confirmed albuterol sulfate [ProAir HFA] 2 puff INHALATION PRN PRN 07/04/19 07/05/19 cetirizine 10 mg PO 5XW 07/04/19 07/05/19 doxycycline hyclate 100 mg PO BID #14 cap 07/04/19 07/05/19 lidocaine 1 applic TP TID PRN #30 gm 07/05/19 Previous Rx's Medication Instructions Recorded doxycycline hyclate 100 mg PO BID #14 cap 07/04/19 lidocaine 1 applic TP TID PRN #30 gm 07/05/19 Allergies Allergy/AdvReac Type Severity Reaction Status Date / Time No Known Allergies Allergy Unverified 07/05/19 19:27 General Stated Complaint: GI Bleed FADIA: 3 Review of Systems All systems reviewed & are unremarkable except as noted in HPI and below Constitutional Constitutional: Denies chills, Denies fever(s) and Denies weakness Cardiovascular Cardiovascular: Denies chest pain and Denies dyspnea Respiratory Respiratory: Denies cough and Denies dyspnea Gastrointestinal Gastrointestinal: Denies abdominal pain, Denies nausea and Denies vomiting Musculoskeletal Musculoskeletal: Denies joint swelling Integumentary/Breasts Skin/Breast: Denies rash Neurologic Neurologic: Denies weakness Psychiatric Psychiatric: Denies depression [facility] Social History Smoking/Tobacco Use Status: Current every day Tobacco Type: cigarettes Alcohol Intake: current Alcohol Intake frequency: 0-2 drinks per day Alcohol type: hard liquor Drug use: Never Substance use type: does not use Do you feel safe at home: Yes Do you feel safe in your relationship?: Yes Exam Const General: no acute distress Orientation: alert HENMT Head: normal to inspection Ears: external ears normal General nose exam: external nose normal Mouth: moist mucous membranes Eyes General: appearance normal, both eyes and all related structures Neck Neck: normal visual inspection Resp Effort & Inspection: normal respiratory effort and able to speak in complete sentences Cardio Rate: regular rate GI Palpation: soft Skin General skin exam: no rashes or lesions noted Neuro General: patient alert and patient oriented x3 Extrem General: normal to inspection Psych Mental Status: mental status grossly normal Course Vital Signs Vital signs: Respiratory Effort Non-Labored 07/05/19 19:27
[2019-07-05 19:53] LABS: Abs Immature Grans 0.02 k/cumm (0.0-0.09); Absolute Basophil Count 0.02 k/cumm (0.0-0.2); Absolute Eosinophil Count 0.04 k/cumm (0.0-0.7); Absolute Monocyte Count 0.68 k/cumm (0.11-0.7); Absolute Neutrophil Count 7.13 k/cumm (1.2-6.7); Basophils % 0.2; Eosinophils % 0.4; Immature Grans % 0.2 %; Lymphocytes % 25.5; Mean Corp. HGB Concentration 36.7 g/dL (32.0-36.0); Mean Corpuscular Hemoglobin 32.2 pg (27.0-33.0); Mean Corpuscular Volume 87.7 fL (80-95); Mean Platelet Volume 9.6 fL (8.0-11.0); Monocytes % 6.4; Neutrophils % 67.3; Platelet Count 275 x1000/uL (130-400); RBC 5.59 m/cumm (4.50-6.00); RBC Distribution Width 12.3 % (11.8-14.1); White Blood Cell Count 10.59 k/cumm (4.4-10.8)
[2019-07-05] MEDS: fentaNYL 100 MCG/2 ML VIAL 75 MCG IVP (19:54)
[2019-07-05] MEDS: Normal Saline Flush 10 ML SYR IVP (19:54)
[2019-07-05 20:08] LABS: Prothrombin Time 9.9 sec (9.3-11.0)
[2019-07-05 20:11] LABS: ALT 114 U/L (16-63); AST 42 U/L (15-37); Albumin 3.9 g/dL (3.4-5.0); Alkaline Phosphatase 81 U/L (46-116); Anion Gap 12.6 mmol/L (3-11); BUN 12 mg/dL (7-18); Bilirubin, Total 0.8 mg/dL (0.2-1.0); CO2 25.4 mmol/L (21.0-32.0); CREATININE 0.75 mg/dL (0.70-1.30); Calcium 8.5 mg/dL (8.5-10.1); Chloride 105 mmol/L (98-107); ETHANOL BLOOD 226.1 mg/dL (<3); Glucose 95 mg/dL (74-106); Potassium 3.6 mmol/L (3.5-5.1); Sodium 143 mmol/L (136-145); Total Protein 6.9 g/dL (6.4-8.2)
[2019-07-05] MEDS: Lidocaine 4% Cream 5 GM TUBE TP (20:51)
--- NOTE | 2019-07-05 20:51 | NUR.NOTE ---
refered to Dr. gamez for hemeroids 07/05/2019Nursing Note:
[2019-07-05 20:55] VITALS: BP 163/99; PULSE 60; RESP 20; TEMP 36.9; O2SAT 96
--- NOTE | 2019-07-05 22:28 | SCONE_ITS ---
Date of service: 07/05/19 Time of Service: 22:28 Assessment and Plan Assessment and plan (1) Internal thrombosed hemorrhoids: Status: Acute Assessment and plan: pt won't allow rectal exam his ETOH level is still 226. He has a long standing Hx of ETOH abuse. These are two lg to do at bedside. Also do not want to do an alcoholics hemorrhoids outside of the OR. I will need to d/w the case w/ anesthesia. I don't know if he is ever sober or if he is sober- than he will be in w/ drawls. I did d/w him- that is would take 4-6 wks to heal w/ Sx and longer w/out. There are no signs of abscess or infection. there is a lg amount of necrotic tissue- this should be debrided before it b;c infected. The ER did start him on doxycycline. He can continue this and use the 2% steriods cream. I will see him in clinic on Friday and will d/w anesthesia. He is in quite a bit of pain. (2) Alcohol abuse: Status: Chronic Assessment and plan: the ED did do a CT which showed fatty liver but not cirrhosis and no portal HTN. no signs of abscess. He has never had a CE. History of Present Illness Narrative: * called to see pt regarded thromboses bleeding hemorrhoids. Pt states he has had problems w/ hemorrhoids for the last 15 yrs. He says the pain and bleeding started . They normally prolapse w/ BM and he can reduce them. He denies fever/chills. no n/v. He was in the ED last night as well and those notes are reviewed. Pt states he drank 2 gallons of alcohol since night and friday b/c f the pain. He says he normally does not drink every day. He says his last drink ws 7am today. His ETOH currently is 225. He smokes a pack a day. He denies any illicit drug use. * He was suppose to see Dr. Jaimes in clinic today- but didn't go in b/c he was scared of dhaving surgery. * * He has never had surgery before. He has never had anethesia before. He denies any medical problems Consults Requesting physician: Tomás Callahan Review of Systems All systems reviewed & are unremarkable except as noted in HPI and below [facility] Medical History (Updated 07/05/19 @ 22:48 by Marina Ragnel DO) Alcohol abuse (Chronic) Bleeding hemorrhoid (Acute) Internal thrombosed hemorrhoids (Acute) Social History Smoking/Tobacco Use Status: Current every day Tobacco Type: cigarettes Alcohol Intake: current Alcohol Intake frequency: 0-2 drinks per day Alcohol type: hard liquor Drug use: Never Substance use type: does not use Do you feel safe at home: Yes Do you feel safe in your relationship?: Yes Exam Const General: cooperative, healthy appearing and no acute distress Other: does not appear grossly intoxicated. does not appear to be actively w/drawing. c/o pain. He has mult tattoos and piercings GI Other: pt has x2 lg thrombosed necrotic hemorrhoids. He will not allow a rectal exam. He will not allow me to reduce them. no signs of abscess. Minimal bloody discharge. Results Last Vital Signs Temp 36.9 C 07/05/19 20:55 Pulse 60 07/05/19 20:55 Resp 20 07/05/19 20:55 BP 163/99 H 07/05/19 20:55 Pulse Ox 96 07/05/19 20:55 Labs Result diagrams: 07/05/19 19:41 07/05/19 19:41 Labs: Laboratory Results - last 24 hr 07/05/19 07/05/19 07/05/19 19:41 19:41 19:41 WBC 10.59 RBC 5.59 Hgb 18.0 H Hct 49.0 MCV 87.7 MCH 32.2 MCHC 36.7 H RDW 12.3 Plt Count 275 MPV 9.6 Immature Gran % 0.2 Neutrophils % 67.3 Lymphocytes % 25.5 Monocytes % 6.4 Eosinophils % 0.4 Basophils % 0.2 Absolute Neutrophils 7.13 H Absolute Lymphocytes 2.70 Absolute Monocytes 0.68 Absolute Eosinophils 0.04 Absolute Basophils 0.02 PT 9.9 INR 1.0 APTT 25.0 Sodium 143 Potassium 3.6 Chloride 105 Carbon Dioxide 25.4 Anion Gap 12.6 H BUN 12 Creatinine 0.75 Estimated GFR/1.73 m2 >= 60.00 Glucose 95 Calcium 8.5 Total Bilirubin 0.8 AST 42 H ALT 114 H Alkaline Phosphatase 81 Total Protein 6.9 Albumin 3.9 Ethyl Alcohol 226.1 Patient ABO/Rh Antibody Screen 07/05/19 19:41 WBC RBC Hgb Hct MCV MCH MCHC RDW Plt Count MPV Immature Gran % Neutrophils % Lymphocytes % Monocytes % Eosinophils % Basophils % Absolute Neutrophils Absolute Lymphocytes Absolute Monocytes Absolute Eosinophils Absolute Basophils PT INR APTT Sodium Potassium Chloride Carbon Dioxide Anion Gap BUN Creatinine Estimated GFR/1.73 m2 Glucose Calcium Total Bilirubin AST ALT Alkaline Phosphatase Total Protein Albumin Ethyl Alcohol Patient ABO/Rh B Negative Antibody Screen Negative
== END 2019-07-05 20:55 | disposition home or self-care (01) ==
LOC: ER 20:53
PROVIDERS: Emergency Provider Emergency Medicine; PCP Nurse Practitioner Family
DX: K64.5 Perianal venous thrombosis (principal)
CPT/HCPCS: 80053; 86850; 86900; 86901; 96374; 99252; 99284; 80320; 85025; 85610; 85730; J3010

== ENCOUNTER 2019-07-07 09:52 | Day surgery (SDC) | payer BC, SELFPAY ==
[2019-07-07 10:09] VITALS: BP 132/83; PULSE 90; RESP 20; TEMP 36.7; O2SAT 97
[2019-07-07] MEDS: Lactated Ringers 1,000 ML 80 ML IV (11:25)
[2019-07-07] MEDS: cefTRIAXone 2 GM/50 ML BAG IVPB (11:45)
[2019-07-07] MEDS: metroNIDAZOLE 500 MG/100 ML BAG 100 MG IVPB (12:20)
[2019-07-07] MEDS: Bupivacaine 0.25% Pres-Free 10 ML VIAL (13:19)
[2019-07-07] MEDS: Bupivacaine LIPOSOME/PF 133 MG/10 ML VIAL IJ (13:19)
--- NOTE | 2019-07-07 13:23 | HEM_PTH ---
PATIENT: Juan C Marinelli LOC: [facility] U#:[id number] AGE/SX: 38/M ROOM: RE07/07/[address]: Marina Rangel : 1980 BED: DIS: 07/07/2019 SPEC #: [id number] RECD: 07/09/19 12:24 STATUS: [place] REQ #: [id number] ZELDA: 07/07/19 13:[address]: Marina Rangel DEPT: Surgical Specimen RECD BY: Dante Sahni ENTERED: 07/09/19 12:25 SP TYPE: Hem OTHR DR: Charissa Vann Tissues: 1 - HEMORRHOIDS Procedures: GROSS AND MICRO LEVEL 3 Comments: [id number]
[2019-07-07] MEDS: Gelatin SPONGE 12-7 MM PKT 1 EACH TP (13:51)
--- NOTE | 2019-07-07 14:17 | ROE_ITS ---
Date of service: 07/07/19 Time of Service: 14:17 Operative Note Operative Note DATE OF PROCEDURE: 07/07/19 PRE-OP DIAGNOSIS: thrombosed/infarcted/necrotic internal adn external hemorrhoids POST-OP DIAGNOSIS: same PROCEDURE: exicions internal/external hemorrhoids SURGEON: Marina Rangel ANESTHESIA: local and spinal ESTIMATED BLOOD LOSS: 35 PATHOLOGY: other COMPLICATIONS: None Patient was transported to: same day Patient's condition: stable Procedure Description: Patient is here today for excision of his thrombosed internal and external hemorrhoids. Informed consent is obtained explaining risks and benefits of procedure including but not limited to: Bleeding, infection, pneumonia, blood clots. Complications of the anesthesia and complications of local anesthetic. Chronic pain, chronic numbness, recurrence of the hemorrhoids. I did discuss with the patient today that this is more more of a salvage procedure. He will most likely require a second surgery given the severity of his hemorrhoids we also discussed the importance of avoiding constipation and straining to the bathroom in the future to prevent further hemorrhoids. Also risks of damage to sphincters and loss of control or stenosis. Patient is brought to the operating room suite spinal anesthetic is administered per the department of anesthesia he is then placed into the low lithotomy posit ion he is prepped and draped in usual sterile fashion using a Betadine scrub solution timeout is performed he did receive antibiotics preop patient is correctly identified he has no known drug allergies. 20 cc was 10% Xperel and quarter percent Marcaine is used for local anesthetization. All 3 of the hemorrhoid clusters are severely thrombosed, infarcted, and necrotic- each measures about an inch by a quarter of an inch. The tissue is excised any clot that is visible is expressed. Mucosas is oversewn with 4-0 Prolene.. There is some significant edema/swelling and nowhere near the sphincters. Again this is a procedure to control infection and pain. He will most likely need a follow-up procedure in the future. The rectum is packed with Gelfoam. There is no bleeding at the time of closure. Sponge and needle counts are correct. Patient tolerated the procedure well without complication and transferred to same day surgery in stable condition.
--- NOTE | 2019-07-07 14:20 | PDOC.DSDIS_ITS ---
Discharge Plan Disposition Patient Disposition: HOME Condition: Good Discharge Details Reason For Visit: EAU W/ HEMROIDECTOMY Attending Provider: Marina Rangel Primary Care Provider: Charissa Vann Home Meds and New Rx's Prescriptions: New hydrocodone-acetaminophen 5-325 mg Tablet 1 tab PO Q4H PRN PRN (Reason: Pain) Qty: 20 RF: 0 ibuprofen 600 mg tablet 600 mg PO Q6H PRNQty: 90 RF: 3 sennosides-docusate sodium [Senna Plus] 8.6-50 mg tablet 1 tab-cap PO BID Qty: 60 RF: 3 Continued cetirizine 10 mg tablet 10 mg PO 5XW RF: 0 albuterol sulfate [ProAir HFA] 90 mcg/actuation HFA aerosol inhaler 2 puff INHALATION PRN PRNRF: 0 doxycycline hyclate 100 mg capsule 100 mg PO BID Qty: 14 RF: 0 lidocaine 5 % ointment 1 applic TP TID PRN (Reason: pain) Qty: 30 RF: 0 Discharge Instructions Additional Instructions: Home Care Instructions after Rectal Surgery Pain/muscle spasms are normal after surgery. Use the prescribed pain medications (norco and ibuprofen), and topical creams (lidocaine). Do not use any other creams unless specifically prescribed for you. It takes oral pain meds an hour to take effect. Do not get behind on your pain meds. Constipation occurs with the use of narcotic pain medications. The first bowel movement after surgery will be painful. Do not let yourself get constipated. Stay on a stool softener (Senna/docusate)while you are on the narcotics. Anesthesia is very constipating- take a dose of milk of magnesia on 07/07. If you do not have a bowel movement daily, use Milk of Magnesia or Meet alax. After you have a BM, don't wipe. Soak in a tub of plain warm water to cleanse the area. It is normal to have bleeding or drainage after rectal surgery; especially when you move your bowels. Use a sanitary napkin to collect the discharge. If you are passing large clots or having to change the pad more than every 4 hours, call the clinic or go to the ER. You may experience spasms in the rectal muscles. This is normal after surgery and last for about two weeks. They can become more intense with bowel movements. You can also try sitz bathes (sitting in a bath tub of PLAIN lukewarm water; soap can add to rectal irritation). Or you can try ice packs. You will have to see what works best for you. You do have rectal packing in place. Leave this in until you have your first BM , or until is falls out on it's own. It is ok to shower. Avoid soap on the surgical area. Use a pillow to sit on. Follow a mild bland diet. Avoid alcohol, spicy food, citrus, and tomatoes. Avoid strenuous activity (running, jogging, and power walking, swimming, weight lifting) for two weeks. No lifting over 5 pounds for 2 weeks. No [address] if taking narcotic pain medications, or cannot turn or twist your body without hesitation. You can return to work when you are no longer taking the pain meds, can sit comfortably for 8 hours or when the weight restrictions are lifted. Urinary retention is common. Sit in a warm tub to try to relax the bladder. If you are unable to urinate after 8 hours, call the office or go to the ER. If you have packing in place, follow the directions for doing the dressing changes. If you have stitches in place, they will fall out in about 7-10 days. They may develop an ?odor?. Follow up in 2 weeks- call the office for an appointment. Activity:: no lifting over 5#'s. no driving x 1 wk Remove Dressings/Wound Care:: 24 hours Shower/Bathe:: 24 hours Diet:: As Tolerated Discharge Orders Discharge Orders: Discharge Order (Routine); Ordered 07/07/19 Ordered By: Marina Rangel DS: Diagnosis Discharge Diagnosis (1) Alcohol abuse: Status: Chronic (2) Internal thrombosed hemorrhoids: Status: Acute (3) Internal and external thrombosed hemorrhoids: Status: Acute
[2019-07-07 14:52] VITALS: BP 135/90; PULSE 68; RESP 16; TEMP 36.4; O2SAT 98
[2019-07-07] MEDS: HYDROcodone 5/Acetaminophen 325 TAB PO (15:18)
[2019-07-07 16:10] VITALS: BP 110/64; PULSE 67; RESP 16; TEMP 36.1; O2SAT 100
== END 2019-07-07 16:55 | disposition home or self-care (01) ==
PROVIDERS: PCP Nurse Practitioner Family; Visit Provider Surgery
PROC: (CPT 46260; principal; 2019-07-07 10:30)
PROC: (CPT 46260; 2019-07-07 10:30)
DX: K64.5 Perianal venous thrombosis (principal)
CPT/HCPCS: 46260; 88304; J2250

== ENCOUNTER 2019-11-23 13:58 | Outpatient (REF) | payer BC, SELFPAY ==
[2019-11-26 18:10] LABS: Patient Race White; SARS-CoV-2 RNA Undetected (Undetected); SARS-CoV-2 Specimen Source Nasal
== END 2019-11-23 14:18 ==
LOC: NCHCN 13:58
PROVIDERS: PCP Nurse Practitioner Family; Visit Provider Nurse Practitioner Family
DX: Z20.828 Contact with and (suspected) exposure to other viral communicable diseases (principal)
CPT/HCPCS: U0003

== ENCOUNTER 2019-12-01 13:46 | Outpatient (REF) | payer BC, SELFPAY ==
[2019-12-04 08:47] LABS: Patient Race White; SARS-CoV-2 RNA Undetected (Undetected); SARS-CoV-2 Specimen Source Nasal
== END 2019-12-01 14:06 ==
LOC: NCHCN 13:46
PROVIDERS: PCP Nurse Practitioner Family; Visit Provider Nurse Practitioner Family
DX: Z20.828 Contact with and (suspected) exposure to other viral communicable diseases (principal); R50.9 Fever, unspecified
CPT/HCPCS: U0003

== ENCOUNTER 2020-01-18 15:39 | Outpatient (REF) | payer BC, SELFPAY ==
[2020-01-21 22:41] LABS: Patient Race White; SARS-CoV-2 RNA Undetected (Undetected); SARS-CoV-2 Specimen Source Nasal
== END 2020-01-18 15:59 ==
LOC: NCHCN 15:39
PROVIDERS: PCP Nurse Practitioner Family; Visit Provider Nurse Practitioner Family
DX: Z20.828 Contact with and (suspected) exposure to other viral communicable diseases (principal)
CPT/HCPCS: U0003

== ENCOUNTER 2020-03-13 06:38 | Day surgery (SDC) | payer BC, SELFPAY ==
[2020-03-13 07:26] VITALS: BP 129/88; PULSE 85; RESP 16; TEMP 36.8; O2SAT 99
[2020-03-13] MEDS: LORazepam 1 MG TAB 2 MG PO (07:37)
--- NOTE | 2020-03-13 09:51 | W.PM.DS.N ---
Date of service: 03/13/20 Time of Service: 09:52 DS: Diagnosis Discharge Diagnosis (1) Chronic anal fissure: Status: Acute (2) Residual hemorrhoid tags: Status: Acute Discharge Plan Discharge Details Attending Provider: Marina Rangel Primary Care Provider: Charissa Vann Home Meds and New Rx's Prescriptions: No Action albuterol sulfate [ProAir HFA] 90 mcg/actuation HFA aerosol inhaler 2 puff INHALATION PRN PRNRF: 0 ibuprofen 600 mg tablet 600 mg PO Q6H PRNQty: 90 RF: 3 sennosides-docusate sodium [Senna Plus] 8.6-50 mg tablet 1 tab-cap PO BID Qty: 60 RF: 3 DS: Data Vitals/I&O Vitals and I&O: Vital Signs Temperature 36.8 C 03/13/20 07:26 Pulse 85 03/13/20 07:26 Pulse Rhythm Regular 03/13/20 07:26 Respiratory Rate 16 03/13/20 07:26 Respiratory Depth Normal 03/13/20 07:26 Blood Pressure 129/88 03/13/20 07:26 Pulse Oximetry 99 03/13/20 07:26 Oxygen Delivery Method Room Air 03/13/20 07:26 Oxygen Flow Rate 0 03/13/20 07:26 Pain Level 0 03/13/20 07:26 Intake & Output 03/12/20 03/12/20 03/13/20 11:59 23:59 11:59 Weight 73.3 kg PFSH Medical History (Updated 03/13/20 @ 09:54 by Marina Rangel DO) Alcohol abuse Bleeding hemorrhoid 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 Internal thrombosed hemorrhoids Residual hemorrhoid tags Surgical History History of hemorrhoidectomy (~07/07/19) thrombosed, necrotic internal and external Social History Smoking/Tobacco Use Status: Current every day Tobacco Type: cigarettes Smoking risk assessment performed?: Yes Alcohol Intake: current Alcohol Intake frequency: 0-2 drinks per day Alcohol type: hard liquor Drug use: Never Substance use type: does not use Details: PT DRANK earlier this month; did not knowing surgery Current gender identity: male Do you feel safe at home: Yes Do you feel safe in your relationship?: Yes
--- NOTE | 2020-03-13 09:54 | W.PM.DSUDISC ---
Discharge Plan Disposition Patient Disposition: HOME Condition: Good Discharge Details Reason For Visit: excision hemorrhoidal tag Attending Provider: Marina Rangel Primary Care Provider: Charissa Vann Home Meds and New Rx's Prescriptions: New dibucaine 1 % ointment 1 applic topical QID PRN (Reason: prn) Qty: 30 RF: 4 Continued albuterol sulfate [ProAir HFA] 90 mcg/actuation HFA aerosol inhaler 2 puff INHALATION PRN PRNRF: 0 ibuprofen 600 mg tablet 600 mg PO Q6H PRNQty: 90 RF: 3 sennosides-docusate sodium [Senna Plus] 8.6-50 mg tablet 1 tab-cap PO BID Qty: 60 RF: 3 Discharge Instructions Additional Instructions: Home Care Instructions after Rectal Surgery Pain control: Ibuprofen 600mg 6hrs (take w/ food. Do not take on an empty stomach) and Tylenol 1000mg by mouth (ibuprofen 400-600mg) every 8 hours. Do not take if you have ulcers or sensitivity to aspirin. Do not take Tylenol if you have hepatitis or liver failure. Alternate the Tylenol and ibuprofen. Take pain meds continuously for the first 72hrs. After 72hrs, you can take as needed if you are having pain. Use dibucaine topical cream. How to prevent constipation: The first bowel movement after surgery will be painful. Do not let yourself get constipated. Stay on a stool softener for the first two weeks after surgery. It is recommended that you use a fiber supplement (Metamucil, Citrucel) daily (1 tablespoon in 8 oz of water). If you do not have a bowel movement daily, use Milk of Magnesia or Miralax. You may have bleeding or drainage after rectal surgery; especially when you move your bowels. Use a sanitary napkin to collect the discharge. If you are passing large clots or having to change the pad more than every 4 hours, call the clinic or go to the ER. You may experience spasms in the rectal muscles. This is normal after surgery and last for about two weeks. They can become more intense with bowel movements. The best remedy is to soak in a bathtub of plain warm water- no Epsom salts, essential oil or soap. It takes about 10 minutes further the spasm to stop. You may want to do this after BM as well. It is ok to shower. Avoid soap on the surgical area. Use a pillow to sit on. Follow a mild bland diet. Avoid alcohol, spicy food, citrus, and tomatoes. Avoid strenuous activity (running, jogging, and power walking, swimming, weight lifting) for two weeks. No lifting over 20 pounds for 2 weeks. Activity:: no lifting over 20#'s or strenuous acitivity x 5 days Diet:: As Tolerated Discharge Orders Discharge Orders: Discharge Order (Routine); Ordered 03/13/20 Ordered By: Marina Rangel DS: Diagnosis Discharge Diagnosis (1) Chronic anal fissure: Status: Acute (2) Residual hemorrhoid tags: Status: Acute
[2020-03-13] MEDS: Acetaminophen 500 MG TAB 1000 MG PO (10:12)
--- NOTE | 2020-03-15 10:20 | W.PM.OP ---
Date of service: 03/13/20 Time of Service: 10:20 Operative Note Operative Note DATE OF PROCEDURE: 03/13/20 PRE-OP DIAGNOSIS: anal tag POST-OP DIAGNOSIS: same Excision of anal tag PROCEDURE: Excision of anal tag SURGEON: Marina Rangel ANESTHESIA: local ESTIMATED BLOOD LOSS: 0 Patient was transported to: same day Procedure Description: Patient had a large hemorrhoid surgery about 6 months ago. He still has a small anal tag but he would like removed. And he is here today for excision. Informed consent is obtained explaining risks and benefits of the procedure including but not limited to: Bleeding, infection, recurrence, loss of control of sphincters or stenosis and reaction to the anesthetics patient had Ativan p.o. preop. He is brought to the procedure room and placed left lip at his decubitus position. Is anesthetized with 5 cc of 1% lidocaine with epi. The tape was excised using electrocautery. Patient is given instructions in wound care, activity, warning signs. He needs to start following more high-fiber diet or start on a high-fiber supplement. patient tolerated procedure well and transferred same day room in stable condition. Sterile dressing is applied. Patient is given instructions in wound care, activity, warning signs. He can use Tylenol and ibuprofen for pain and warm sits baths. He needs to start following more high-fiber diet or start on a high-fiber supplement. He will follow-up with me in 2 weeks time.
== END 2020-03-13 10:33 | disposition home or self-care (01) ==
PROVIDERS: PCP Nurse Practitioner Family; Visit Provider Surgery
PROC: (CPT 46220; 2020-03-13 08:30)
DX: K64.4 Residual hemorrhoidal skin tags (principal)
CPT/HCPCS: 46220

== ENCOUNTER 2020-04-26 15:23 | Outpatient (REF) | payer BC, SELFPAY ==
[2020-04-27 14:23] LABS: COVID-19 RT-PCR UVMMC Result Negative (Negative)
== END 2020-04-26 15:24 | disposition home or self-care (01) ==
LOC: NCHCN 15:23
PROVIDERS: PCP Nurse Practitioner Family; Visit Provider Nurse Practitioner Family
DX: Z20.822 Contact with and (suspected) exposure to COVID-19 (principal)
CPT/HCPCS: U0003

== ENCOUNTER 2020-10-22 13:46 | Emergency (ER) | payer SELFPAY ==
[2020-10-22 13:49] VITALS: BP 125/86; PULSE 86; RESP 17; TEMP 36.9; O2SAT 98
--- NOTE | 2020-10-22 13:59 | ED.GENADUL_ITS ---
Discharge Plan Disposition Patient Disposition: HOME Condition: Stable Discharge Details Clinical Impression: Finger pain, Finger swelling Primary Care Provider: Charissa Vann ED Provider: Zulma Linn Home Meds and New Rx's Prescriptions: No Action No Known Home Meds RF: 0 Discharge Instructions Additional Instructions: Please continue to encourage rest, ice, elevation. Tylenol and/or ibuprofen as needed for discomfort. You may continue with the splint to help with d iscomfort. Tick and Lyme panel pending. We will call you with any positive results. I will recheck to today with your uric acid test. Please follow-up with orthopedics for reevaluation. Please call tomorrow to schedule appointment, number listed below. If you develop redness, warmth, drainage, increased pain, fever/chills or other new/worsening symptom please seek care urgently once again. Referrals: Brayan Byrd MD [ [facility] STAFF PHYSICIAN] - Discharge Data Discharge Date/Time-TO BE ENTERED AT DEPARTURE: 10/22/20 16:04 Medical Decision Making Patient is a pleasant [id number] 40-year-old male presenting today with chief complaint of swelling and discomfort to the right index finger x1 month. Reports that this began insidiously. Described initially as a bump. Since that time, area has become more swollen and range of motion has been very limited. He has been using a foam metal splint to help with discomfort. Denies any known trauma. Denies any laceration or injury. Denies any fevers or chills. Denies IVDU. On exam, patient had, swelling over the DIP joint, more pronounced along the radial side. However, no palpable bony defect. No erythema warmth, drainage. No deformity is appreciated. He is able to flex and extend against resistance but the range of motion itself is quite limited secondary to the swelling. At this time, his finger appears quite benign assessment swelling. Unclear etiology. Will obtain x-ray to evaluate for potential fracture. FINDINGS: Three views were obtained. There is mild soft tissue swelling in the region of the DIP joint. No fracture is identified. IMPRESSION: Discussed these findings with the patient. He is now reporting that he also experienced some unsual swelling in right elbow. Questioning tick born illness, will send testing for this. He is wondering if this is gout. I doubt this based on how long he has had symptoms as well as apprearance. No changes on XR. However, will send uric acid for further evaluationof this. Willcall patient tonight with these results. Will call with any positive results of tick and Lyme testing. As he has such limited ROM and this is affecting his ADLs, will refer to orthopedics for reevaluation. encouraged RICE. He will continue with splint. All of his quesitons and concerns were addressed, he is in agreement with this plan. He will return with any new or worsening symptoms. HPI General Mode of arrival: ambulatory . Date/Time Provider Initiated Documentation: 10/22/20 13:47 . Limitations to Documentation: no limitations . Information obtained by: patient and RN notes reviewed . History of Present Illness 40 year old M presents to the emergency department with the chief complaint of right index pain, described as moderate, with intensity rated at 6. Quality is described as aching, and is localized to the right and upper extremity. Patient reports no radiation. Patient started experiencing this month(s) (1) and it has been constant. Immobilization improves symptom(s), Movement worsens symptoms . Patient notes no other symptoms.. Patient did receive the following treatments prior to arrival, splint Related Data Home Medications Medication Instructions Recorded Confirmed Unknown [No Known Home Meds] 10/22/20 10/22/20 Allergies Allergy/AdvReac Type Severity Reaction Status Date / Time No Known Allergies Allergy Unverified 10/22/20 13:53 General Stated Complaint: Orthopedic FADIA: 4 Review of Systems Constitutional Constitutional: Reports as per HPI, Denies chills, Denies fever(s), Denies headache(s) and Denies weakness ENT Ears, Nose, Mouth, and Throat: Denies headache(s) Cardiovascular Cardiovascular: Reports as per HPI Respiratory Respiratory: Reports as per HPI and Denies cough Musculoskeletal Musculoskeletal: Reports as per HPI and Denies tingling Integumentary/Breasts Skin/Breast: Reports as per HPI, Denies rash and Denies wounds Neurologic Neurologic: Reports as per HPI, Denies headache(s), Denies tingling, Denies paresthesias and Denies weakness [facility] Medical History Alcohol abuse Bleeding hemorrhoid 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 Internal thrombosed hemorrhoids Residual hemorrhoid tags (~1221/20) removal 03/13/20 Stoiber Surgical History History of hemorrhoidectomy (~07/07/19) thrombosed, necrotic internal and external Social History Smoking/Tobacco Use Status: Current every day Tobacco Type: cigarettes Smoking risk assessment performed?: Yes Alcohol Intake: current Alcohol Intake frequency: 0-2 drinks per day Alcohol type: hard liquor Drug use: Never Substance use type: does not use Details: PT DRANK earlier this month; did not knowing surgery Current gender identity: male Do you feel safe at home: Yes Do you feel safe in your relationship?: Yes Exam Const General: cooperative, healthy appearing, comfortable, no acute distress, well developed and well groomed Nutritional Appearance: average body habitus and well nourished Orientation: alert and awake Resp Effort & Inspection: normal respiratory effort, able to speak in complete sentences and no respiratory distress Cardio Rate: regular rate Rhythm: regular rhythm Skin General skin exam: no rashes or lesions noted Lesions: no lesions Rashes: no rashes Trauma: no lacerations or abrasions Neuro General: patient alert and patient awake Cognition: normal cognition Speech: speech normal Gait: normal gait Motor: muscle tone normal throughout Sensory Exam: no sensory deficits noted Extrem Hand/finger images: 1. Area of swelling. Swelling is maximal in the radial side of the finger. No erythema, warmth, drainage. No palpable deformity. Patient is able to flex and extend against resistance although the range of motion itself is very limited secondary to swelling. Psych Appearance: grossly normal and well kempt Mental Status: mental status grossly normal Speech and Movement: speech and movement normal Course Vital Signs Vital signs: Vital Signs Temperature 36.9 C 10/22/20 13:49 Pulse 86 10/22/20 13:49 Respiratory Rate 17 10/22/20 13:49 Blood Pressure 125/86 10/22/20 13:49 Pulse Oximetry 98 10/22/20 13:49 Temperature 36.9 C 10/22/20 13:49 Temperature Source Temporal Artery Scan 10/22/20 13:49 Pulse 86 10/22/20 13:49 Respiratory Rate 17 10/22/20 13:49 Respiratory Effort 10/22/20 13:52 Blood Pressure 125/86 10/22/20 13:49 Blood Pressure Position Sitting 10/22/20 13:49 Pulse Oximetry 98 10/22/20 13:49 Oxygen Delivery Method Room Air 10/22/20 13:49 Oxygen Flow Rate 0 10/22/20 13:49 Pain Level 6 10/22/20 13:49
--- NOTE | 2020-10-22 14:00 | DI.RAD_ITS ---
Exam(s) XR FINGER RT INDEX EXAM: XR FINGER RT INDEX CLINICAL HISTORY: swelling and pain DIP TECHNIQUE: COMPARISON: CR RIGHT HAND COMPLETE from 11/26/2010 FINDINGS: Three views were obtained. There is mild soft tissue swelling in the region of the DIP joint. No fr acture is identified. IMPRESSION: RADIATION DOSE DELIVERED: Total DLP
[2020-10-22 16:46] LABS: Uric Acid 7.1 mg/dL (3.5-7.2)
[2020-10-24 10:44] LABS: Lyme Ab w Rflx to Lyme Confirm Negative (Negative)
[2020-10-25 17:39] LABS: Anaplasma phagocytophilum Negative (Negative); B. miyamotoi PCR Negative (Negative); Babesia divergens/MO-1 Negative (Negative); Babesia duncani Negative (Negative); Babesia microti Negative (Negative); Ehrlichia chaffeensis Negative (Negative); Ehrlichia ewingii/canis Negative (Negative); Ehrlichia muris eauclairensis Negative (Negative)
== END 2020-10-22 16:04 | disposition home or self-care (01) ==
PROVIDERS: Emergency Provider Physician Assistant; PCP Nurse Practitioner Family
DX: M79.644 Pain in right finger(s) (principal); R22.31 Localized swelling, mass and lump, right upper limb
CPT/HCPCS: 36415; 87798; 99283; 73140; 84550; 86618

== ENCOUNTER 2021-05-24 08:44 | Emergency (ER) | payer SELFPAY ==
[2021-05-24 09:08] VITALS: BP 183/96; PULSE 98; RESP 18; TEMP 36.3; O2SAT 96
[2021-05-24 09:16] VITALS: RESP 18
--- NOTE | 2021-05-24 09:17 | W.ED.GENAD ---
Discharge Plan Disposition Patient Disposition: HOME Condition: Stable Discharge Details Clinical Impression: Degenerative disc disease, cervical, Cervical radiculopathy, Chronic cough Primary Care Provider: Charissa Vann ED Provider: Nicole Redding Home Meds and New Rx's Prescriptions: New methocarbamol 500 mg tablet 500 mg PO Q6H PRN (Reason: muscle spasm) Qty: 14 0RF prednisone 20 mg tablet See Rx Instructions .ROUTE .COMPLEX Qty: 18 0RF Rx Instructions: Take 3 tabs daily for 3 days, then 2 tabs daily for 3 days, then 1 tab daily for 3 days. benzonatate 100 mg capsule 100 mg PO TID PRN (Reason: cough) Qty: 10 0RF Continued ibuprofen 200 mg Tablet 400 mg PO Q6H PRN0RF Discharge Instructions Instructions: Chronic Cough (ED), Cervical Radiculopathy (ED), Degenerative Disc Disease (ED) Additional Instructions: The CT scan of your neck today noted arthritis which likely is the source of your pain and numbness. You may need further evaluation with an MRI to rule out a potential disc herniation. You are being sent home with prescriptions for steroids and muscle relaxers to take as needed and directed for your pain. A referral has been placed to the [facility] for follow-up and further evaluation and consideration for an MRI of your cervical spine if indicated. Your chest x-ray today showed no evidence of acute disease. Chronic cough can be due to lung disease, GERD, allergies, among other possible causes. You are being sent home with a prescription for cough medication. You can also consider txgp-[id number] allergy and or heartburn medication. You have been placed on care management list to arrange for a follow-up appointment with a primary care doctor to establish care and for reevaluation. Return immediately to the emergency department if you develop any worsening or new concerning symptoms such as loss of balance, paralysis or any other concerns. Discharge Data Discharge Date/Time-TO BE ENTERED AT DEPARTURE: 05/24/21 13:09 Discharge Physician: Nicole Redding Medical Decision Making 40yo M tobacco smoker presents to the ED with a complaint of left thumb pain, tingling and numbness that radiates from the thumb up to his left medial upper arm. He does admit to occasional left-sided neck pain worse with head rotation. His blood pressure is elevated. He has not seen a doctor for some time due to loss of insurance. He has diminished sensation along the C5-6 distribution of the L upper extremity extending from the L thumb and lateral forearm and upper arm but no motor focal deficits and intact distal pulses with normal pink skin color with evidence of cellulitis, trauma. Differential diagnosis includes cervical radiculopathy, disc herniation, stenosis or, peripheral neuropathy. He had a negative Tinel's and Phalen's sign and has radiculopathy extending to the upper extremities so carpal tunnel appears less likely. Will refer for CT cervical spine and give a dose of prednisone, Valium and IM Toradol As for his chronic cough, discussed with patient that this could be related to chronic lung disease, GERD, allergies, etc. He initially had mild expiratory wheezing but this cleared with coughing and his lungs are clear bilaterally. As he has no fever, shortness of breath, acute infectious process seems less likely. A chest xray was obtained which was negative. CT cervical spine notes: IMPRESSION: Degenerative disc changes, greatest at C5-6 and C6-7 causing bilateral neural foraminal narrowing is greatest at C6-7 on the left, severe.? No gross evidence of a disc herniation.? No significant central canal stenosis. Case discussed and imaging reviewed with [facility] who recommended follow-up with them as an outpatient and agree with plan for steroids and muscle relaxers as recommended with recommended plan for MRI if symptoms do not improve or worsen. Patient placed on care management list to arrange for an appointment with the primary care doctor to establish care and for reevaluation. Usual and customary return precautions given prior to discharge. Medical Records Medical records reviewed: Yes I reviewed the patient's medical records. Imaging Data Radiologic Study: Radiologist's impression: ?CT CERVICAL SPINE WO CLINICAL HISTORY: ? neck pain, L arm/thumb pain/numbness. ? TECHNIQUE:? Imaging Protocol: Axial computed tomography images with coronal and sagittal reformatted images were created and reviewed COMPARISON:? No exams were available for comparison FINDINGS: Bones: No fracture or dislocations are seen. Degenerative disc changes are seen with osteophyte formation from C4-5 through C7-T1.? There are minimal facet degenerative changes.? There is some reversal of the normal cervical lordosis secondary to degenerative changes. C2-3: Normal. C3-4: Minimal osteophytes projecting posteriorly.? C4-5: Small endplate osteophytes projecting posteriorly.? Calcification at the posterior disc in the midline.? C5-6: Kptw-ju-fvolsyip loss of disc height.? Circumferentially projecting osteophytes causing mild to moderate bilateral neural foraminal narrowing.? C6-7: Moderate loss of disc height.? Circumferentially projecting osteophytes causing moderate to severe bilateral neural foraminal narrowing, greater on the left...? C7-T1: Mild loss of disc height and small endplate osteophytes.? No significant neural foraminal narrowing.? Soft Tissues: The soft tissues of the neck are unremarkable. No large disk herniations are identified. IMPRESSION: Degenerative disc changes, greatest at C5-6 and C6-7 causing bilateral neural foraminal narrowing is greatest at C6-7 on the left, severe.? No gross evidence of a disc herniation.? No significant central canal stenosis. XR CHEST 2V PA ? LATERAL CLINICAL HISTORY:? chronic cough, r/o acute disease TECHNIQUE:? 2D digital imaging was performed. COMPARISON:? CT CT ABDOMEN ? PELVIS W from 07/04/2019 FINDINGS: MEDIASTINUM: Normal.? HEART: Normal. PULMONARY VASCULATURE: Normal. LUNGS: Clear. ? PLEURAL SPACE: No pleural effusion or pneumothorax. BONE:Unremarkable for age.? IMPRESSION: No acute abnormality.? HPI General Mode of arrival: ambulatory. Date/Time Provider Initiated Documentation: 05/24/21 09:16. Limitations to Documentation: no limitations. Information obtained by: patient. HPI Narrative: Patient is a 40-year-old ablir-gsfm-rlfetsxc male who presents with left thumb pain, tingling and numbness extending from the thumb up the extremity to the left upper arm for the past month, getting progressively worse. Patient states pain is worse with any activity, movement or using his left arm. He states the pain radiates from his left thumb up his lateral forearm and medial left upper arm. He does admit to some left-sided neck pain that is worse with left-sided head rotation. He states he will take It infrequently left 80 pound box of cheese but denies any known specific injury. He has been taking Tylenol and ibuprofen for pain without relief. He states he does not have a primary care doctor and recently lost his insurance has not seen anybody for this complaint. He denies any fever, chest pain or shortness of breath. He did also complain of a chronic cough and was diagnosed with the flu last year. He states it is chronic throughout the day and worse at nighttime when laying flat. He states he is occasionally coughing up yellow sputum. He states he has a smoker but has recently cut down to 5 cigarettes daily. He denies any significant sore throat, nausea, vomiting, change in appetite or known exposure to coronavirus. He states he is unvaccinated for Covid. Related Data Home Medications Medication Instructions Recorded Confirmed benzonatate 100 mg capsule 100 mg PO TID PRN #10 cap 05/24/21 ibuprofen 200 mg tablet 400 mg PO Q6H PRN 05/24/21 05/24/21 methocarbamol 500 mg tablet 500 mg PO Q6H PRN #14 tab 05/24/21 prednisone 20 mg tablet See Rx Instructions .ROUTE 05/24/21 .COMPLEX #18 tab Previous Rx's Medication Instructions Recorded benzonatate 100 mg capsule 100 mg PO TID PRN #10 cap 05/24/21 methocarbamol 500 mg tablet 500 mg PO Q6H PRN #14 tab 05/24/21 prednisone 20 mg tablet See Rx Instructions .ROUTE 05/24/21 .COMPLEX #18 tab Allergies Allergy/AdvReac Type Severity Reaction Status Date / Time No Known Allergies Allergy Unverified 05/24/21 09:13 General Stated Complaint: Orthopedic FADIA: 4 Review of Systems All systems reviewed & are unremarkable except as noted in HPI and below Constitutional Constitutional: Reports as per HPI, Denies chills and Denies fever(s) Eyes Eyes: Denies blurry vision ENT Ears, Nose, Mouth, and Throat: Denies dizziness, Denies sore throat and Denies throat swelling Cardiovascular Cardiovascular: Denies chest pain and Denies dyspnea Respiratory Respiratory: Reports cough and Denies dyspnea Gastrointestinal Gastrointestinal: Denies abdominal pain, Denies diarrhea and Denies vomiting Genitourinary Genitourinary: Denies hematuria and Denies dysuria Musculoskeletal Musculoskeletal: Denies back pain, Reports numbness (radiating from left thumb to lateral forearm and medial upper arm ), Reports radiating pain into limb (Left neck pain, radiation of pain from L thumb to L upper arm) and Reports tingling (Radiating from left thumb to lateral forearm up to medial upper arm) Integumentary/Breasts Skin/Breast: Denies lesions and Denies rash Neurologic Neurologic: Denies dizziness, Denies localized weakness, Reports numbness (radiating from left thumb to lateral forearm and medial upper arm ) and Reports tingling (Radiating from left thumb to lateral forearm up to medial upper arm) Allergic/Immunologic Allergic/Immunologic: Denies throat swelling PFSH All Active Problems (Updated 05/24/21 @ 12:58 by Nicole Redding DO) Finger pain (Acute) Finger swelling (Acute) Degenerative disc disease, cervical (Acute) Cervical radiculopathy (Acute) Chronic cough (Acute) Residual hemorrhoid tags (Acute ~03/13/20) removal 03/13/20 [facility] Chronic anal fissure (Acute) Internal and external thrombosed hemorrhoids (Acute) Alcohol abuse (Chronic) Internal thrombosed hemorrhoids (Acute) Medical History Alcohol abuse Bleeding hemorrhoid 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 Internal thrombosed hemorrhoids Residual hemorrhoid tags (~03/13/20) removal 03/13/20 [facility] Surgical History History of hemorrhoidectomy (~07/07/19) thrombosed, necrotic internal and external Social History Smoking/Tobacco Use Status: Current every day Tobacco Type: cigarettes Smoking risk assessment performed?: Yes Alcohol Intake: former Drug use: Never Substance use type: does not use Details: PT DRANK earlier this month; did not knowing surgery Current gender identity: male Do you feel safe at home: Yes Do you feel safe in your relationship?: Yes Exam Const General: cooperative, healthy appearing and no acute distress Orientation: alert, awake and oriented x3 HENMT Head: normal to inspection Ears: hearing grossly normal bilaterally, external ears normal and TM's normal bilaterally General nose exam: external nose normal Face and sinus: normal facial exam Mouth: oral mucosae normal Throat: posterior oropharynx normal Eyes General: appearance normal, both eyes and all related structures Neck Neck: normal visual inspection Resp Effort & Inspection: normal respiratory effort and able to speak in complete sentences Auscultation: clear to auscultation bilaterally Cardio Rate: regular rate Rhythm: regular rhythm Back/Spine/Pelvis Cervical Spine: cervical muscular tenderness (Mild, left paraspinal), pain with cervical ROM (Mild, with left head rotation and right side bending) and No cervical spinal tenderness Skin General skin exam: no rashes or lesions noted Neuro General: patient alert, patient awake and patient oriented x3 Motor: muscle tone normal throughout and strength 5/5 throughout Other: Normal motor strength noted in bilateral triceps/biceps/radial/ulnar nerve distribution. Diminished sensation left thumb/radial nerve distribution, left lateral forearm, left medial upper arm compared to right upper extremity. Bilateral radial and ulnar pulses intact. Extrem General: normal to inspection and full ROM Psych Appearance: grossly normal Affect: normal affect Course Vital Signs Vital signs: Vital Signs Temperature 97.3 F L 05/24/21 09:08 Pulse 98 H 05/24/21 09:08 Respiratory Rate 18 05/24/21 09:08 Blood Pressure 183/96 H 05/24/21 09:08 Pulse Oximetry 96 05/24/21 09:08 Temperature 97.3 F L 05/24/21 09:08 Temperature Source Temporal Artery Scan 05/24/21 09:08 Pulse 98 H 05/24/21 09:08 Respiratory Rate 18 05/24/21 09:08 Respiratory Effort Non-Labored 05/24/21 09:11 Blood Pressure 183/96 H 05/24/21 09:08 Blood Pressure Position Sitting 05/24/21 09:08 Pulse Oximetry 96 05/24/21 09:08 Oxygen Delivery Method Room Air 05/24/21 09:08 Oxygen Flow Rate 0 05/24/21 09:08 Pain Level 8 05/24/21 09:12
[2021-05-24] MEDS: Ketorolac 60 MG/2 ML VIAL IM (09:51)
[2021-05-24] MEDS: diazePAM 5 MG TAB PO (09:52)
[2021-05-24] MEDS: predniSONE 20 MG TAB 60 MG PO (09:52)
--- NOTE | 2021-05-24 10:55 | DI.CT_ITS ---
Exam(s) CT CERVICAL SPINE WO EXAM: CT CERVICAL SPINE WO CLINICAL HISTORY: neck pain, L arm/thumb pain/numbness. TECHNIQUE: Imaging Protocol: Axial computed tomography images with coronal and sagittal reformatted images were created and reviewed COMPARISON: No exams were available for comparison FINDINGS: Bones: No fracture or dislocations are seen. Degenerative disc changes are seen with osteophyte forma tion from C4-5 through C7-T1. There are minimal facet degenerative changes. There is some reversal of the normal cervical lordosis secondary to degenerative changes. C2-3: Normal. C3-4: Minimal osteophytes projecting posteriorly. C4-5: Small endplate osteophytes projecting posteriorly. Calcification at the posterior disc in the midline. C5-6: Kgvl-bi-xyprukdy loss of disc height. Circumferentially projecting osteophytes causing mild to moderate bilateral neural foraminal narrowing. C6-7: Moderate loss of disc height. Circumferentially projecting osteophytes causing moderate to sev ere bilateral neural foraminal narrowing, greater on the left... C7-T1: Mild loss of disc height and small endplate osteophytes. No significant neural foraminal narr owing. Soft Tissues: The soft tissues of the neck are unremarkable. No large disk herniations are identified . IMPRESSION: Degenerative disc changes, greatest at C5-6 and C6-7 causing bilateral neural foraminal narrowing is greatest at C6-7 on the left, severe. No gross evidence of a disc herniation. No significant centra l canal stenosis. RADIATION DOSE DELIVERED: 703.48mGy.cm Total DLP 703.48mGy.cm Total DLP DATA REPOSITORY: All CT scans at this facility are submitted to the National Radiology Data Registry (NRDR) Dose Index Registry (DIR) with the [employer] ([employer]). RADIATION OPTIMIZATION: All CT scans at this facility use at least one of these dose optimization te chniques: automated exposure control; mA and/or kV adjustment per patient size (includes targeted exa ms where dose is matched to clinical indication); or iterative reconstruction.
--- NOTE | 2021-05-24 11:00 | DI.RAD_ITS ---
Exam(s) XR CHEST 2V PA LATERAL EXAM: XR CHEST 2V PA LATERAL CLINICAL HISTORY: chronic cough, r/o acute disease TECHNIQUE: 2D digital imaging was performed. COMPARISON: CT CT ABDOMEN PELVIS W from 07/04/2019 FINDINGS: MEDIASTINUM: Normal. HEART: Normal. PULMONARY VASCULATURE: Normal. LUNGS: Clear. PLEURAL SPACE: No pleural effusion or pneumothorax. BONE:Unremarkable for age. IMPRESSION: No acute abnormality. DATA REPOSITORY: RADIATION DOSE DELIVERED:
--- NOTE | 2021-05-24 13:06 | NUR.NOTE ---
Nursing Note: Referral given to Care Management to [facility] for cervical radiculopathy in 1 to 2 week.s Referral faxed to PCP/[facility] for cervical radiculopathy within the next 2 weeks. Maria Dolores Waters
--- NOTE | 2021-05-25 11:33 | CMACTNOTE_ITS ---
- If Service Date Differs Date of service: 05/25/21 Time of Service: 11:34 Care Management Activity Note Juan C is seen in the ED for cervical radiculopathy, degenerative disc disease, and chronic cough. At the request of ED provider, CM coordinates a referral to [facility] to assist Juan C in obtaining an appointment for further evaluation and treatment of back pain.
== END 2021-05-24 13:09 | disposition home or self-care (01) ==
PROVIDERS: Emergency Provider Physician Assistant; PCP Nurse Practitioner Family
DX: M50.122 Cervical disc disorder at C5-C6 level with radiculopathy (principal); R20.2 Paresthesia of skin; R05.3 Chronic cough; F17.210 Nicotine dependence, cigarettes, uncomplicated; R03.0 Elevated blood-pressure reading, without diagnosis of hypertension
CPT/HCPCS: 96372; 99284; 71046; 72125; J1885; J7512

== ENCOUNTER 2021-06-19 14:41 | Outpatient (REF) | payer SELFPAY ==
[2021-06-19 21:17] LABS: HCT 50.1 % (40.0-50.0); HGB 17.9 g/dL (13.5-17.5); MCH 32.4 pg (27.0-33.0); MCHC 35.7 % (32.0-36.0); MCV 90.8 fL (80-95); MPV 10.4 fL (8.0-11.0); Platelet Count 353 10^3/uL (130-400); RBC 5.52 10^6/uL (4.36-5.78); RDW 11.9 % (11.8-14.1); RDW-SD 39.9 fL; WBC 7.96 10^3/uL (4.4-10.8)
[2021-06-19 21:35] LABS: ALT 78 U/L (16-63); AST 29 U/L (15-37); Albumin 4.4 g/dL (3.4-5.0); Alkaline Phosphatase 96 U/L (46-116); Anion Gap 12.4 mmol/L (3-11); BUN 13 mg/dL (7-18); Bilirubin, Total 0.7 mg/dL (0.2-1.0); CO2 26.6 mmol/L (21.0-32.0); CREATININE 0.8 mg/dL (0.70-1.30); Calcium 9.4 mg/dL (8.5-10.1); Calculated LDL 172 mg/dL (<100); Chloride 99 mmol/L (98-107); Cholesterol 265 mg/dL (<200); Glucose 95 mg/dL (74-106); HDL Cholesterol 62 mg/dL (40-60); Potassium 4.4 mmol/L (3.5-5.1); Sodium 138 mmol/L (136-145); Total Protein 7.6 g/dL (6.4-8.2); Triglyceride 159 mg/dL (<150)
== END 2021-06-19 14:42 | disposition home or self-care (01) ==
LOC: NCHCN 14:41
PROVIDERS: PCP Nurse Practitioner Family; Visit Provider Nurse Practitioner Family
DX: Z00.00 Encounter for general adult medical examination without abnormal findings (principal); Z13.220 Encounter for screening for lipoid disorders; R94.5 Abnormal results of liver function studies
CPT/HCPCS: 80053; 80061; 85027

== ENCOUNTER 2021-11-13 10:46 | Emergency (ER) | payer SELFPAY ==
[2021-11-13 10:48] VITALS: BP 154/94; PULSE 81; RESP 16; TEMP 36.8; O2SAT 100
--- NOTE | 2021-11-13 11:00 | DI.RAD_ITS ---
Exam(s) XR ELBOW RT COMPLETE EXAM: XR ELBOW RT COMPLETE CLINICAL HISTORY: Swelling TECHNIQUE: COMPARISON: No exams were available for comparison FINDINGS: Three views were obtained. There is no evidence of an elbow joint effusion or hemarthrosis. There d oes appear to be some soft tissue swelling of the olecranon region. No bony abnormality seen. IMPRESSION: RADIATION DOSE DELIVERED: Total DLP
--- NOTE | 2021-11-13 11:13 | ED.GENADUL_ITS ---
Discharge Plan Disposition Patient Disposition: HOME Condition: Stable Discharge Details Clinical Impression: Bursitis of right elbow Primary Care Provider: Charissa Vann ED Provider: Kaye White Home Meds and New Rx's Prescriptions: No Action No Known Home Meds Discharge Instructions Instructions: Elbow Bursitis (ED) Additional Instructions: Rest, ice, compression, elevation. Wear the [place] wrap for the next 5 to 7 days. Follow up with primary care provider in 3-5 days. Return to ED sooner if any worsening or concerns. Increase oral fluids. Please take Tylenol or Ibuprofen with food every 4-6 hours as needed for pain and swelling. X-rays at this time show no underlying bony abnormality no fractures or broken bones. Referrals: Charissa Vann [Primary Care Provider] - 1 week Discharge Data Discharge Date/Time-TO BE ENTERED AT DEPARTURE: 11/13/21 11:53 Medical Decision Making XR ordered to rule out underlying injury. HPI General Mode of arrival: ambulatory . Date/Time Provider Initiated Documentation: 11/13/21 10:48 . Limitations to Documentation: no limitations . Information obtained by: patient, RN notes reviewed and old records reviewed . HPI Narrative: 41-year-old male presents to the ER with chief complaint of right elbow swelling which has been ongoing for the last week. he denies any known injury. He does have some swelling noted over the bursa sac, no erythema no pain, full range of motion. He has a past medical history of anal fissures, hemorrhoids. Related Data Home Medications Medication Instructions Recorded Confirmed Unknown [No Known Home Meds] 11/13/21 11/13/21 Allergies Allergy/AdvReac Type Severity Reaction Status Date / Time No Known Allergies Allergy Unverified 11/13/21 10:51 General Stated Complaint: Orthopedic FADIA: 4 Review of Systems Musculoskeletal Musculoskeletal: Reports as per HPI and Reports joint swelling PFSH All Active Problems (Updated 11/13/21 @ 11:46 by Kaye White NP) Finger pain (Acute) Finger swelling (Acute) Bursitis of right elbow (Acute) Residual hemorrhoid tags (Acute ~03/13/20) removal 03/13/20 Stoiber Chronic anal fissure (Acute) Internal and external thrombosed hemorrhoids (Acute) Alcohol abuse (Chronic) Internal thrombosed hemorrhoids (Acute) Medical History Bleeding hemorrhoid Surgical History History of hemorrhoidectomy (~07/07/19) thrombosed, necrotic internal and external Social History Smoking/Tobacco Use Status: Current every day Tobacco Type: cigarettes Smoking risk assessment performed?: Yes Alcohol Intake: former Drug use: Never Substance use type: does not use Details: PT DRANK earlier this month; did not knowing surgery Current gender identity: male Do you feel safe at home: Yes Do you feel safe in your relationship?: Yes Exam Extrem Right upper extremity: elbow/forearm Details: swelling Location: of the olecranon, normal ROM and distal pulses intact; no tenderness, no unusual warmth and no ecchymosis Course Vital Signs Vital signs: Vital Signs Temperature 36.8 C 11/13/21 10:48 Pulse 81 11/13/21 10:48 Respiratory Rate 16 11/13/21 10:48 Blood Pressure 154/94 H 11/13/21 10:48 Pulse Oximetry 100 11/13/21 10:48 Temperature 36.8 C 11/13/21 10:48 Temperature Source Temporal Artery Scan 11/13/21 10:48 Pulse 81 11/13/21 10:48 Respiratory Rate 16 11/13/21 10:48 Respiratory Effort Non-Labored 11/13/21 10:52 Blood Pressure 154/94 H 11/13/21 10:48 Blood Pressure Position Sitting 11/13/21 10:48 Pulse Oximetry 100 11/13/21 10:48 Oxygen Delivery Method Room Air 11/13/21 10:48 Oxygen Flow Rate 0 11/13/21 10:48 Pain Level 0 11/13/21 10:54
== END 2021-11-13 11:53 | disposition home or self-care (01) ==
PROVIDERS: Emergency Provider Registered Nurse Emergency; PCP Nurse Practitioner Family
DX: M70.31 Other bursitis of elbow, right elbow (principal); F17.210 Nicotine dependence, cigarettes, uncomplicated
CPT/HCPCS: 99283; 73080

== ENCOUNTER 2022-01-11 08:21 | Emergency (ER) | payer SELFPAY ==
[2022-01-11 08:25] VITALS: BP 144/81; PULSE 88; RESP 18; TEMP 36.8; O2SAT 99
--- NOTE | 2022-01-11 09:09 | W.ED.GENAD ---
Discharge Plan Disposition Patient Disposition: HOME Condition: Stable Discharge Details Clinical Impression: Eye pain Primary Care Provider: Charissa Vann ED Provider: Bhupinder Wilson Home Meds and New Rx's Prescriptions: New erythromycin 5 mg/gram (0.5 %) ointment 0.5 inch ophthalmic (eye) QID 10 Days Qty: 3.5 0RF Discharge Instructions Additional Instructions: Erythromycin eye ointment as directed. Warm moist compresses every 2 hours for 20 minutes. Idwz-dub-wbpjoeg Tylenol and/or Motrin as directed for discomfort. Your intraocular pressure was normal but was on the high end of normal. This may be completely appropriate for you but I do recommend that you contact our local placement specialist with referral provided and set up appointment early next week for prompt outpatient reevaluation. Referrals: [facility] [Outside] Medical Decision Making 41-year-old gentleman who does not wear contacts or glasses presents for what he describes as left eyelid pain and swelling associated with slightly red eye and discharge yesterday, woke up this morning symptoms were worse and slightly associated in the right eye. He used cool compresses and eanl-mvk-fojsznj drops and reports that his symptoms in his right eye have resolved and his symptoms in his left eye are improving but not resolved completely. He initially reported what he described as eye pain but later describes this more as eyelid pain and not true eye pain. No increase of discomfort with movement of his eyes. Clinically he appears well, nontoxic. There is minimal swelling to his left upper lateral lid with tenderness but I see no obvious hordeolum. No signs of orbital or periorbital cellulitis. Visual acuities are bilateral 20/15, right 20/20, left 20/25 I did examine the patient with fluorescein, no uptake, no signs of abrasion or foreign body. I obtained intraocular pressure for both eyes, left eye was 19 and 20 and right eye was 20 and 21. Patient does self admit that his symptoms are much improved after compresses and lygt-ggf-aawyxxq drops. He complains of lid swelling, eye redness and discharge, certainly concerning for infectious process. No evidence of foreign body, abrasion, increased intraocular pressure, significant visual abnormality, movement abnormality, signs of iritis, etc. No global disruption or hyphema. Discussed with patient. Plan to treat with erythromycin eye ointment. We discussed the importance of warm moist compresses as well as cool compresses. We will also provide a referral to our local ophthalmology team. I expressed the importance of outpatient follow-up. Standard discharge and return precautions were provided. Patient understands, is agreeable to this plan, and has no additional questions or concerns upon discharge. This documentation was generated using [employer] system, please disregard any oddities of phrase or misspellings. Medical Records Medical records reviewed: Yes I reviewed the patient's medical records. HPI General Mode of arrival: ambulatory. Date/Time Provider Initiated Documentation: 01/11/22 08:31. Limitations to Documentation: no limitations. Information obtained by: patient. HPI Narrative: This is a 41-year-old gentleman, denies wearing contacts or glasses, presents for an eye complaint. Patient states that yesterday he developed left upper eyelid swelling, tenderness, a little bit of drainage. Today he reports that when he awoke he had similar but milder symptoms in his right eye although those have primarily resolved. He denies any double vision. He reports that his vision is slightly blurry because of the eyelid swelling. He did use eye irritation drops this morning and he believes his eyes are less red than they were. He denies recent illness or trauma. Related Data Home Medications Medication Instructions Recorded Confirmed erythromycin 5 mg/gram (0.5 %) eye 0.5 inch ophthalmic (eye) QID 10 01/11/22 ointment days #3.5 grams Previous Rx's Medication Instructions Recorded erythromycin 5 mg/gram (0.5 %) eye 0.5 inch ophthalmic (eye) QID 10 01/11/22 ointment days #3.5 grams Allergies Allergy/AdvReac Type Severity Reaction Status Date / Time No Known Allergies Allergy Unverified 01/11/22 08:28 General Stated Complaint: EyeProblem FADIA: 4 Review of Systems Constitutional Constitutional: Denies fever(s), Denies headache(s) and Denies weakness Eyes Eyes: Reports blurry vision, Denies diplopia, Reports eye discharge, Reports irritation, Reports itchy eyes, Denies loss of peripheral vision, Denies loss of vision, Reports eye pain and Denies requires corrective lenses ENT Ears, Nose, Mouth, and Throat: Denies headache(s) Integumentary/Breasts Skin/Breast: Denies rash Neurologic Neurologic: Denies headache(s), Denies loss of vision and Denies weakness Allergic/Immunologic Allergic/Immunologic: Reports itchy eyes PFSH All Active Problems (Updated 01/11/22 @ 09:16 by CYRUS Myers) Finger pain (Acute) Finger swelling (Acute) Eye pain (Acute) Residual hemorrhoid tags (Acute ~03/13/20) removal 03/13/20 Stoiber Chronic anal fissure (Acute) Internal and external thrombosed hemorrhoids (Acute) Alcohol abuse (Chronic) Internal thrombosed hemorrhoids (Acute) Medical History Bleeding hemorrhoid Surgical History History of hemorrhoidectomy (~07/07/19) thrombosed, necrotic internal and external Social History Smoking/Tobacco Use Status: Current every day Tobacco Type: cigarettes Smoking risk assessment performed?: Yes Alcohol Intake: former Drug use: Never Substance use type: does not use Details: PT DRANK earlier this month; did not knowing surgery Current gender identity: male Do you feel safe at home: Yes Do you feel safe in your relationship?: Yes Exam Const General: cooperative, healthy appearing, comfortable, no acute distress and anxious Orientation: alert, awake and oriented x3 HENMT Head: normal to inspection, normocephalic and atraumatic General nose exam: external nose normal Face and sinus: normal facial exam Mouth: moist mucous membranes Eyes Alignment and Position: alignment normal Periorbital: periorbital findings normal Eyelids: eyelid abnormality left upper eyelid swelling (Minimal) and tenderness (Slight) Conjunctivae: conjunctivae normal Sclera: sclerae normal Cornea: corneas normal and fluorescein used Pupils: PERRL EOM: EOM intact bilaterally Direct ophthalmoscopy: normal light reflex Neck Neck: normal visual inspection, full ROM, no meningeal signs, trachea midline and supple Resp Effort & Inspection: normal respiratory effort and able to speak in complete sentences Skin General skin exam: no rashes or lesions noted Neuro General: patient alert, patient awake, moves all extremities and no focal motor deficits Cognition: normal cognition Speech: speech normal Gait: normal gait Sensory Exam: no sensory deficits noted Psych Appearance: grossly normal Mental Status: mental status grossly normal Course Vital Signs Vital signs: Vital Signs Temperature 36.8 C 01/11/22 08:25 Pulse 88 01/11/22 08:25 Respiratory Rate 18 01/11/22 08:25 Blood Pressure 144/81 H 01/11/22 08:25 Pulse Oximetry 99 01/11/22 08:25 Temperature 36.8 C 01/11/22 08:25 Temperature Source Temporal Artery Scan 01/11/22 08:25 Pulse 88 01/11/22 08:25 Respiratory Rate 18 01/11/22 08:25 Respiratory Effort Non-Labored 01/11/22 08:28 Blood Pressure 144/81 H 01/11/22 08:25 Blood Pressure Position Sitting 01/11/22 08:25 Pulse Oximetry 99 01/11/22 08:25 Oxygen Delivery Method Room Air 01/11/22 08:25 Oxygen Flow Rate 0 01/11/22 08:25
[2022-01-11] MEDS: Tetracaine 0.5% 4 ML BTL (09:27)
[2022-01-11] MEDS: Fluorescein STRIPS 100/BOX 1 MG (09:27)
[2022-01-11] MEDS: Balanced Salt Solution 15 ML BTL (09:27)
== END 2022-01-11 12:24 | disposition home or self-care (01) ==
PROVIDERS: Emergency Provider Physician Assistant; PCP Nurse Practitioner Family
DX: H57.12 Ocular pain, left eye (principal); H02.89 Other specified disorders of eyelid
CPT/HCPCS: 99283; 99284

== ENCOUNTER 2024-02-15 13:39 | Emergency (ER) | payer BC, SELFPAY ==
[2024-02-15 13:42] VITALS: BP 150/88; PULSE 105; RESP 18; TEMP 36.7; O2SAT 97
--- NOTE | 2024-02-15 13:52 | ED.GENADUL_ITS ---
Discharge Plan Disposition Patient Disposition: Home Condition: Stable Discharge Details Chief Complaint: GenMedical Clinical Impression: Pharyngitis Primary Care Provider: Charissa Vann ED Provider: Benito Callahan Home Meds and New Rx's Prescriptions: No Action No Known Home Meds Discharge Instructions Additional Instructions: Your strep test today was negative. You likely have a virus that is causing her symptoms. You can have 1000 mg of acetaminophen and 600 mg of ibuprofen every 6 hours as needed If not improving this week follow-up with your primary care provider If you feel more ill, have severe worsening pain or inability to swallow liquids return to the emergency department for reevaluation HPI General Mode of arrival: ambulatory . Date/Time Provider Initiated Documentation: 02/15/24 13:39 . Limitations to Documentation: no limitations . Information obtained by: patient . History of Present Illness 43 year old M presents to the emergency department with the chief complaint of sore throat, described as moderate, Quality is described as aching, Patient started experiencing this day(s) (2) and it has been constant. No relieving factors improve symptom(s), No exacerbating factors reported . Patient notes no other symptoms.. Patient did receive the following treatments prior to arrival, none Related Data Home Medications ?Medication ?Instructions ?Recorded ?Confirmed Unknown [No Known Home Meds] 02/15/24 02/15/24 Allergies Allergy/AdvReac Type Severity Reaction Status Date / Time No Known Allergies Allergy Unverified 02/15/24 13:45 General Stated Complaint: GenMedical FADIA: 3 Review of Systems All systems reviewed & are unremarkable except as noted in HPI and below Constitutional Constitutional: Denies chills, Denies fever(s) and Denies weakness ENT Ears, Nose, Mouth, and Throat: Reports sore throat Cardiovascular Cardiovascular: Denies chest pain and Denies dyspnea Respiratory Respiratory: Denies cough and Denies dyspnea Gastrointestinal Gastrointestinal: Denies abdominal pain, Denies nausea and Denies vomiting Integumentary/Breasts Skin/Breast: Denies rash Neurologic Neurologic: Denies weakness Exam Const General: no acute distress Orientation: alert HENMT Head: normal to inspection Ears: external ears normal General nose exam: external nose normal Mouth: moist mucous membranes Throat: uvula midline Eyes General: appearance normal, both eyes and all related structures Neck Neck: normal visual inspection Resp Effort & Inspection: normal respiratory effort and able to speak in complete sentences Cardio Rate: regular rate Skin General skin exam: no rashes or lesions noted Neuro General: patient alert and patient oriented x3 Extrem General: normal to inspection Psych Mental Status: mental status grossly normal Course Vital Signs Vital signs: Vital Signs Temperature 36.7 C 02/15/24 13:42 Pulse 105 H 02/15/24 13:42 Respiratory Rate 18 02/15/24 13:42 Blood Pressure 150/88 H 02/15/24 13:42 Pulse Oximetry 97 02/15/24 13:42 Temperature 36.7 C 02/15/24 13:42 Temperature Source Oral 02/15/24 13:42 Pulse 105 H 02/15/24 13:42 Respiratory Rate 18 02/15/24 13:42 Respiratory Effort Normal, Non-Labored 02/15/24 13:45 Blood Pressure 150/88 H 02/15/24 13:42 Blood Pressure Position Sitting 02/15/24 13:42 Pulse Oximetry 97 02/15/24 13:42 Oxygen Delivery Method Room Air 02/15/24 13:42 Oxygen Flow Rate 0 02/15/24 13:42 Medical Decision Making 43-year-old male comes in with 2 days of sore throat, body aches and low-grade fevers per patient. He denies any difficulty breathing, productive cough, neck stiffness, difficulty swallowing liquids. He is well-appearing on exam speaking in full sentences. He has no drooling or stridor. His posterior pharynx is erythematous, there is no exudates, there is a midline uvula, there is no submandibular swelling, no pain over the hyoid or restricted neck movements. Findings consistent with pharyngitis, will check a strep test. No findings on exam or history to suggest retropharyngeal abscess, epiglottitis, peritonsillar abscess. Strep test negative, patient stable. Advised this is likely a virus and will run its course, he will follow-up with his PCP or express care if not improving and return precautions Differential Diagnosis Differential Diagnosis: Viral pharyngitis, strep pharyngitis Quality:SDOH Health Related Social Needs: No Data to Display PFSH All Active Problems (Updated 02/15/24 @ 14:14 by Benito Callahan MD) Pharyngitis (Acute) Finger swelling (Acute) Finger pain (Acute) Residual hemorrhoid tags (Acute ~03/13/20) removal 03/13/20 Stoiber Chronic anal fissure (Acute) Internal and external thrombosed hemorrhoids (Acute) Alcohol abuse (Chronic) Internal thrombosed hemorrhoids (Acute) Medical History Bleeding hemorrhoid Surgical History History of hemorrhoidectomy (~07/07/19) thrombosed, necrotic internal and external Social History Smoking/Tobacco Use Status: Current every day Tobacco Type: e-cigarettes Smoking risk assessment performed?: Yes Alcohol Intake: former Drug use: Rarely Substance use type: marijuana Details: PT DRANK earlier this month; did not knowing surgery Current gender identity: male Do you feel safe at home: Yes Do you feel safe in your relationship?: Yes
[2024-02-15 14:27] VITALS: BP 150/88; PULSE 105; RESP 15; RESP 18; TEMP 36.7; O2SAT 97
--- OUTSIDE RECORDS SUMMARY | 2024-02-15 14:42 | XMS_ITS | Encounter Summary ---
Author Organization [facility] Address [address] [place] [address] Care Team Providers Care Preliminary School Psychologist Name Role Phone Charissa Vann QUINTON Primary Care Provider [phone] Encounter Details Date Type Department Care Team (Late st Contact Info) Description 04/26/2020 Lab Requisition [facility] Pathology & Laboratory Medicine - [facility] [address] [place] [address] Outr Resulting Lab, Provider Social History Tobacco Use Types Packs/Day Years Used Date Smoking Tobacco: Never Assessed Interpersonal Safety Answer Date Record ed Physically Hurt Never 10/25/2019 Verbally Threaten Not on file 10/25/2019 Sex and Gender Information Value Date Recorded Sex Assigned at Not on file Legal Sex Male 15:22 EDT Gender Identity Not on file Sexual Orientation Not on file documented as of this encounter Plan of Treatment Not on file documented as of this encounter Procedures Procedure Name Priority Date/Time Associated Diagnosis Comments ZZCOVID-19 TEST [facility] PCR Today 04/26/2020 10:30 EST COVID-19 TESTING Routine 04/26/2020 10:3 0 EST documented in this encounter Results * COVID-19 TEST [facility] PCR (04/26/2020 10:30 EST) Swab ENTIRE NASOPHARYNX / Unknown 04/26/2020 10:30 EST 04/26/2020 17:04 EST us Provider Outr Resulting Lab MICROBIOLOGY - GENER AL ORDERABLES Final Result [facility] [address] [place] [address] * COVID-19 TESTING (04/26/2020 10:30 EST) COVID-19 rt-PCR Result Negative Negative 04/27/2020 14:18 EST [facility] Comment: This test was developed and its performance characteristics determined by [facility]. It has not been cleared or approved by the US Food and Drug Administration. FDA does not require this test to go through premarket FDA review. This test is used for clinical purposes. It should not be regarded as investigational or for research. This laboratory is certified under the Clinical Laboratory Improvement Amendments (CLIA) as qualified to perform high complexity clinical laboratory testing. This test is based on the [facility] COVID-19 Emergency Use Authorization (EUA) assay, with minor modification as defined by the FDA Performed on the [employer] 7 Pro RT-PCR System. This test has not been FDA cleared or approved. This test has been authorized by FDA under an EUA for use by authorized laboratories. This test has been authorized only for detection of nucleic acid from 2019-nCoV, not for any other viruses or pathogens. This test is only authorized for the duration of the declaration that circumstances exist justifying the authorization of emergency use of in vitro diagnostic tests for detection and/or diagnosis of 2019-nCoV under section 564(b)(1) of Act, 21 U.S.C ?? 360bbb-3(b) (1), unless the authorization is terminated or revoked sooner. Negative results do not preclude 2019-nCoV infection and should not be used as the sole basis for treatment or other patient management decisions. Negative results must be combined with clinical observations, patient history, and epidemiological information. Performing Lab [facility] Lab 04/27/2020 14:18 EST [facility] Swab 04/26/2020 10:3 0 EST 04/26/2020 17:04 EST us Provider Outr Resulting Lab MICROBIOLOGY - GENER AL ORDERABLES Final Result [facility] [address] [place] [address] documented in this encounter Visit Diagnoses Not on filedocumented in this encounter Care Teams Preliminary School Psychologist Relationship Specialty Start Date End Date Charissa Vann FNP [address] [facility] [address] [place] [address] PCP - General 06/23/19 documented as of this encounter
--- OUTSIDE RECORDS SUMMARY | 2024-02-15 14:42 | XMS_ITS | Referral Summary ---
Author Organization [facility] Address [address] [place] [address] Care Team Providers Care Business Librarian Name Role Phone Charissa Vann QUINTON Primary Care Provider [phone] Social History Tobacco Use Types Packs/Day Years Used Date Smoking Tobacco: Never Assessed Interpersonal Safety Answer Date Record ed Physically Hurt Never 10/25/2019 Verbally Threaten Not on file 10/25/2019 Sex and Gender Information Value Date Recorded Sex Assigned at Not on file Legal Sex Male 15:22 EDT Gender Identity Not on file Sexual Orientation Not on file Plan of Treatment Not on file Insurance [employer] OOS Care Teams Business Librarian Relationship Specialty Start Date End Date Charissa Vann FNP [address] [facility] [address] [place] [address] PCP - General 06/23/19
--- OUTSIDE RECORDS SUMMARY | 2024-02-15 14:42 | XMS_ITS | Encounter Summary ---
Author Organization [facility] Address [address] [place] [address] Care Team Providers Care Laminating Machine Offbearer Name Role Phone Charissa Vann QUINTON Primary Care Provider [phone] Encounter Details Date Type Department Care Team (Late st Contact Info) Description 10/23/2020 Lab Requisition [facility] Pathology & Laboratory Medicine - [facility] [address] [place], [place] [address] Outr Resulting Lab, Provider Social History Tobacco [...] Procedure Name Priority Date/Time Associated Diagnosis Comments LYME AB Routine 10/22/2020 16:05 EDT documented in this encounter Results * LYME AB (10/22/2020 16:05 EDT) Lyme Ab Negative Negative 10/24/2020 10:[address] [facility] Blood VENOUS BLOOD / Unknown 10/22/2020 16:05 EDT 10/23/2020 15:52 EDT us Provider Outr Resulting Lab IMMUNOLOGY AND SEROL OGY ORDERABLES Final Result [facility] [address] [place] [address] documented in this encounter Visit Diagnoses Not on filedocumented in this encounter Care Teams Laminating Machine Offbearer Relationship Specialty Start Date End Date Charissa Vann FNP [address] [place] [address] [address] [place] [address] PCP - General 06/23/19 documented as of this encounter
--- OUTSIDE RECORDS SUMMARY | 2024-02-15 14:42 | XMS_ITS | Encounter Summary ---
Author Organization [facility] Address [facility] [place] [address] Care Team Providers Care Facility Maintenance Worker Name Role Phone Unavailable Primary Care Provider Unavailabl e Encounter Details Date Type Department Care Team (Late st Contact Info) Description 05/24/2021 11:50 AM EST Ancillary Procedure Radiology Library at [facility] KJ Mathews [id number] Esvin Pittman MD [facility] [id number] Social History Tobacco Use Types Packs/Day Years Used Date Smoking Tobacco: Never Assessed Sex and Gender Information Value Date Recorded Sex Assigned at Not on file Gender Identity Not on file Sexual Orientation Not on file documented as of this encounter Plan of Treatment Not on file documented as of this encounter Procedures Procedure Name Priority Date/Time Associated Diagnosis Comments FILM LIBRARY STORAGE ONLY CT SPINE Routine 05/24/2021 11:46 AM EST documented in this encounter Results * Film Library- Storage Only CT Spine (05/24/2021 11:46 AM EST) Narrative BLANE GAYTAN - 05/24/2021 11:46 AM EST This exam is auto-finalizing. It's purpose is for storage only. Esvin FLORESG FILM LIBRARY ORD ERABLES [place] documented in this encounter Visit Diagnoses Not on filedocumented in this encounter
--- OUTSIDE RECORDS SUMMARY | 2024-02-15 14:42 | XMS_ITS | Clinical Summary ---
Author Organization [facility] [place] [address] Care Team Providers Care Facilities Clerk Name Role Phone Charissa Vann APRN Primary Care Provider [phone] Social History Tobacco Use Types Packs/Day Years Used Date Smoking Tobacco: Never Assessed Sex and Gender Information Value Date Recorded Sex Assigned at Not on file Gender Identity Not on file Sexual Orientation Not on file Plan of Treatment Health Maintenance Due Date Last Done Comments HIV screen 2000 Hepatitis C Screening 2000 Lipid Screening 2000 Hepatitis B vaccine (0-59 yrs) (1) 2001 Tetanus/Diphtheria/Pertussis Vaccines (1 - Tdap) 09/12 Covid-19 Vaccine (1 - 2023- season) 2023 Influenza (Flu) vaccine (1 o f 1 - Influenza standard series) 11/23/2023 Care Teams Facilities Clerk Relationship Specialty Start Date End Date Charissa Vann APRN [address] [place] [address] PCP - General Family Medicine 07/10/21
--- OUTSIDE RECORDS SUMMARY | 2024-02-15 14:42 | XMS_ITS | Clinical Summary ---
Author Organization [facility] Address [address] [place] [address] Care Team Providers Care Respiratory Care Program Director Name Role Phone Charissa Vann QUINTON Primary Care Provider [phone] Social History Tobacco Use Types Packs/Day Years [...] Health Maintenance Due Date Last Done Comments Hepatitis C Screen 1982 Hepatitis B Vaccine (1 of 3 - 19+ 3-dose series) 09/12 COVID-19 Vaccine (2023- season) 2023 Insurance [facility] Care Teams Respiratory Care Program Director Relationship Specialty Start Date End Date Charissa Vann FNP [address] [place] [address] [address] [place] [address] PCP - General 06/23/19
--- OUTSIDE RECORDS SUMMARY | 2024-02-15 14:42 | XMS_ITS | Encounter Summary ---
Author Organization [facility] [place] [address] Care Team Providers Care Technical Consultant Name Role Phone Unavailable Primary Care Provider Unavailabl e Reason for Referral * Consultation (Routine) - Closed Specialty Diagnoses / Procedures Referred By Contautumn t Referred To [facility] Diagnoses DDD (degenerative disc disease), cervical Radiculopathy of cervical region Spine- Cervical foraminal narrowing/ radicular sx/ CT 05/24/21 in [facility] Nicole Redding [address] [place] [id number] [facility] [place] [address] Referral ID Status Reason Start Date Expiration Date V isits Requested Visits Authorized [id number] Closed Evaluate and Treat PCP Updated and/or Approved 05/28/2021 05/28/2022 3 3 Scheduling Instructions Referral received through onbase and scanned to chart. Encounter Details Date Type Department Care Team (Latest Contact Info) Description 05/28/2021 Transcribe Orders [facility] [place] [address] [address] Redding [address] [place] [phone] DDD (degenerative disc disease), cervical; Radiculopathy of cervical region Social History Tobacco Use Types Packs/Day Years Used Date Smoking Tobacco: Never Assessed Sex and Gender Information Value Date Recorded Sex Assigned at Not on file Gender Identity Not on file Sexual Orientation Not on file documented as of this encounter Plan of Treatment Scheduled Referrals Name Type Priority Associated Diagnoses Orde r Schedule Referral to [facility] Center (Internal only) Outpatient Referral Routine DDD (degenerative disc disease), cervical Radiculopathy of cervical region Ordered: 05/28/2021 documented as of this encounter Visit Diagnoses Diagnosis DDD (degenerative disc disease), cervical Degeneration of cervical intervertebral disc Radiculopathy of cervical region Brachial neuritis or radiculitis nos documented in this encounter
--- OUTSIDE RECORDS SUMMARY | 2024-02-15 14:42 | XMS_ITS | Encounter Summary ---
Author Organization [facility] Address [address] [place] [address] Care Team Providers Care Air Carrier Inspector Name Role Phone Charissa Vann QUINTON Primary Care Provider [phone] Encounter Details Date Type Department Care Team (Late st Contact Info) Description 07/09/2019 Lab Requisition [facility] Pathology & Laboratory Medicine - [facility] [address] [place] [address] Marina Rangel, DO [address] [place], [place] [id number] Encounter for other general examination Social History Tobacco Use Types Packs/Day Years [...] Procedure Name Priority Date/Time Associated Diagnosis Comments SURGICAL PATHOLOGY Today 07/07/2019 13 :23 EDT Encounter for other general examination documented in this encounter Results * SURGICAL PATHOLOGY (07/07/2019 13:23 EDT) Final Diagnosis A. HEMORRHOIDS, HEMORRHOIDECTOMY: - Hemorrhoids. - Overlying mucosa with surface erosion; Negative for dysplasia. 07/12/2019 13:32 EDT [facility] at 1332 Attestation By the signature below, the attending physician certifies that they have 1) personally conducted a gross and/or microscopic examination of the described specimen(s), and/or personally interpreted the results of laboratory testing of the described specimen(s), and 2) personally rendered or confirmed the above diagnosis. 07/12/2019 13:32 [facility] at 1332 Clinical History Internal thrombosed hemorrhoids 07/12/2019 13:32 [facility] Gross Description A. Received in formalin labelled with proper patient identification (initials K, J) and hemorrhoids are multiple fragments of red-brown to silverio blanco soft tissue (4.0 x 3.7 x 2.5 cm in aggregate). Sectioning reveals dilated and tortuous cut surfaces. No firm areas identified. Chrome Tanning Drum Operator sections are submitted in A 1-A3. Kaye Magui 07/09/2019 15:32 07/12/2019 13:32 T [facility] Scanned Images 07/12/2019 13:32 [facility] Tissue HEMORRHOIDS / Unknown 07/07/2019 13:23 EDT 07/09/2019 15:25 EDT us Marina Rangel DO PATHOLOGY ORDERABLES Final Re sult [facility] [address] [place] [address] documented in this encounter Visit Diagnoses Diagnosis Encounter for other general examination documented in this encounter Care Teams Air Carrier Inspector Relationship Specialty Start Date End Date Charissa Vann FNP [address] [place] [address] [place] [id number] PCP - General 06/23/19 documented as of this encounter
== END 2024-02-15 14:32 | disposition home or self-care (01) ==
LOC: ER 14:40
PROVIDERS: Emergency Provider Emergency Medicine; PCP Nurse Practitioner Family
DX: J02.9 Acute pharyngitis, unspecified (principal); F17.290 Nicotine dependence, other tobacco product, uncomplicated
CPT/HCPCS: 87880; 99282; 99283

== ENCOUNTER 2024-03-24 12:00 | Emergency (ER) | payer SELFPAY ==
[2024-03-24 12:08] VITALS: BP 146/86; PULSE 76; RESP 16; TEMP 36.5; O2SAT 95
[2024-03-24 12:13] VITALS: BP 146/86; PULSE 76; RESP 16; TEMP 36.5; O2SAT 95
--- NOTE | 2024-03-24 12:30 | DI.CT_ITS ---
Exam(s) CT NECK CHEST ABD PEL W EXAM: CT NECK CHEST ABD PEL W CLINICAL HISTORY: abdominal bloating and distension. TECHNIQUE: Imaging Protocol: Axial computed tomography images with coronal and sagittal reformatted images were created and reviewed CONTRAST MATERIAL: Intravenous: none Oral: None COMPARISON: CT CT CERVICAL SPINE WO from 05/24/2021 FINDINGS: CT SOFT TISSUES NECK: VISUALIZED PARANASAL SINUSES: There is mucosal thickening in the left frontoethmoidal recess. No raegan e opacification of the frontal sinuses. Maxillary and sphenoid sinuses are clear as are most of the ethmoidal air cells. Left mastoid air cells unremarkable. There is partial sclerosis of the right m astoid air cells. NASOPHARYNX: Unremarkable ORODENTAL: Unremarkable. OROPHARYNX: Slight asymmetric prominence of the left tonsil HYPOPHARYNX: Unremarkable. Valleculae and epiglottis and aryepiglottic folds appear normal. VOCAL CORDS: Unremarkable. No masses evident. Subglottic airway appears unremarkable. THYROID GLAND: Unremarkable. Normal size and no obvious nodules. SALIVARY GLANDS: Unremarkable. No significant findings in the parotid and submandibular glands. LYMPH NODES: Small benign-appearing lymph nodes are noted in both sides the neck. There is no growth adenopathy evident in the neck and supraclavicular regions. OTHER: CHEST: LUNGS: There are a few tiny benign granulomas in the lung angel noted. No ominous nodules, infiltrat es, nor pleural effusions.. MEDIASTINUM: No obvious hilar nor mediastinal adenopathy. Visualized thyroid unremarkable. CARDIAC: Heart size is normal. There is no pericardial effusion.Caliber of the thoracic aorta is wit hin normal limits. OSSEOUS: No significant osseous lesions.No fractures. ABDOMEN: There is no ascites. LIVER: There are no obvious focal hepatic lesions evident of this noninfused study. GALLBLADDER/BILIARY: No obvious gallbladder pathology. CBD is not dilated. PANCREAS: No evidence of obvious pancreatic mass nor dilatation of the pancreatic duct. SPLEEN: Spleen is not enlarged. No obvious intrasplenic lesions. ADRENALS: There are no significant adrenal masses. KIDNEYS: No calculi nor hydronephrosis. No obvious solid renal masses. No cysts evident. ABDOMINAL AORTA: Abdominal aorta is not enlarged. LYMPH NODES: There is no retroperitoneal nor para-aortic adenopathy. ABDOMINAL WALL/GI: There are bilateral fat only containing inguinal hernias, right larger than left. There are no bowel loops in the hernias and no evidence of bowel obstruction. PELVIS: LYMPH NODES: There is no intrapelvic nor inguinal adenopathy. GI: No evidence of appendicitis.No evidence of sigmoid diverticulitis. URINARY BLADDER: No calculi nor obvious masses evident. The pelvic ureters are not dilated. REPRODUCTIVE: Prostate size normal. Seminal vesicles unremarkable. OSSEOUS: No significant osseous lesions. IMPRESSION: 1. No significant acute findings in the chest, abdomen, and pelvis 2. There are bilateral fat only containing inguinal hernias, right larger than left. There are no bow el loops within the hernia sacs. There is no evidence of bowel obstruction. 3. No significant findings in the soft tissues of the neck. Incidentally noted is some mucosal thicke vanessa in the left frontoethmoidal recess. Given the history here recommend outpatient esophagram study. Report discussed by myself to ER physician 03/24/2024 at 2:50 p.m. RADIATION DOSE DELIVERED: 1,100.29mGy.cm Total DLP 1,100.29mGy.cm Total DLP 1,100.29mGy.cm Total DLP 1,100.29mGy.cm Total DLP DATA REPOSITORY: All CT scans at this facility are submitted to the National Radiology Data Registry (NRDR) Dose Index Registry (DIR) with the [employer] ([employer]). RADIATION OPTIMIZATION: All CT scans at this facility use at least one of these dose optimization te chniques: automated exposure control; mA and/or kV adjustment per patient size (includes targeted exa ms where dose is matched to clinical indication); or iterative reconstruction.
--- NOTE | 2024-03-24 12:52 | ED.GENADUL_ITS ---
Discharge Plan Disposition Patient Disposition: Home Condition: Good Discharge Details Clinical Impression: Esophagitis Primary Care Provider: Charissa Vann ED Provider: Esvin Coats Home Meds and New Rx's Prescriptions: New pantoprazole 40 mg tablet,delayed release (DR/EC) 40 mg PO DAILY Qty: 120 0RF famotidine 40 mg tablet 40 mg PO QHS Qty: 120 0RF sucralfate [Carafate] 1 gram tablet 1 g PO BID Qty: 240 0RF Discharge Instructions Instructions: Esophagitis Additional Instructions: At this time your CT imaging has returned reassuring with no significant abnormalities. However this is the beginning of the workup. We would recommend nonemergent outpatient esophagram study, as well as an EGD performed by elastic yarn twister helper or surgeon for further evaluation of your esophagus. I do suspect there is a component of inflammation of your esophagus called esophagitis. Please take the Carafate, Protonix, and famotidine to help manage the symptoms. Avoid any spicy foods, citrus foods, or tomato-based products. If you notice any worsening of your symptoms, or any new symptoms such as vomiting, diarrhea, fever, chills, shortness of breath, chest pain, numbness, weakness, or fainting , please return immediately to the emergency department for reevaluation. Please follow up with your primary care provider as soon as possible for reassessment and reevaluation. As always, it was a pleasure participating in your medical care today. HPI General Date/Time Provider Initiated Documentation: 03/24/24 12:01 . HPI Narrative: 43-year-old male with a past medical history of previous alcohol use and the distant past, he has been dry for the last few years. When he was drinking he was drinking a few gallons of vodka per week. He has a past family history positive for esophageal cancer, and a father who is also an alcoholic. He presents today for evaluation of sore throat and difficulty swallowing. About a month ago he was seen and assessed here in the ED, strep test was negative at that time, it was suspected that this was a viral etiology then. Patient was discharged home with expectant supportive therapy. He states that since then the pain has slightly improved in his throat however he does have difficulty when he swallows water or eats food. He feels like there is something stuck and it is hard to get it down. He states that this is the case whenever he tries to drink. He has been eating less because of this. Despite this he states that he has had a weight gain recently though. No weight loss. No fever or chills. Patient does admit to a history of GERD, and does also state that when he lays down at night and sometimes during the day he will feel a burning sensation in his lower esophageal region. He also admits to some mild abdominal bloating over the last few months. He denies any vomiting or diarrhea. No focal abdominal pain no. Patient has no other complaints at this time. No other modifying factors. He denies any blood in his stool. He denies any vision changes or headache. He denies any severe bleeding. No other complaints. Related Data Home Medications ?Medication ?Instructions ?Recorded ?Confirmed famotidine 40 mg tablet 40 mg PO QHS #120 tabs 03/24/24 pantoprazole 40 mg tablet,delayed 40 mg PO DAILY #120 tabs 03/24/24 release sucralfate 1 gram tablet (Carafate) 1 g PO BID #240 tabs 03/24/24 Previous Rx's ?Medication ?Instructions ?Recorded famotidine 40 mg tablet 40 mg PO QHS #120 tabs 03/24/24 pantoprazole 40 mg tablet,delayed 40 mg PO DAILY #120 tabs 03/24/24 release sucralfate 1 gram tablet (Carafate) 1 g PO BID #240 tabs 03/24/24 Allergies Allergy/AdvReac Type Severity Reaction Status Date / Time No Known Allergies Allergy Unverified 03/24/24 12:12 General Stated Complaint: Sorethroat FADIA: 4 Exam Narrative Exam Narrative: 1.Const: Well-nourished, Well-developed, appearing stated age 2.Eyes: PERRL, no conjunctival injection, and symmetrical lids. 3.ENT: Atraumatic external nose and ears. Moist MM. Neck: Symmetric, trachea midline, No thyromegaly. Posterior oropharynx demonstrates minimal erythema, no evidence of tonsillitis posterior mass in the oropharynx, or other abnormality. Trachea is midline with no large palpable nodule or mass. 4.CVS: +S1/S2, Peripheral pulses 2+ and equal in all extremities. Brisk capillary refill in all extremities. 5.RESP: Unlabored respiratory effort. Clear to auscultation bilaterally. No wheezes rales or rhonchi 6.GI: Soft, Nontender/Nondistended, slightly bloated no hepatosplenomegaly. No guarding or rebound. 7.MSK: Normocephalic/Atraumatic, Extremities w/o deformity or ttp No cyanosis or clubbing, Normal movement of all extremities 8.Skin: Warm, Dry. No rashes or lesions. 9.Neuro: chairman and ceo II-XII grossly intact. Sensation grossly intact, no focal neurologic deficits. 10.Psych: (AAO) x3. Appropriate mood and affect Course Vital Signs Vital signs: Vital Signs Temperature 36.5 C 03/24/24 12:08 Pulse 76 03/24/24 12:08 Respiratory Rate 16 03/24/24 12:08 Blood Pressure 146/86 H 03/24/24 12:08 Pulse Oximetry 95 03/24/24 12:08 Temperature 36.5 C 03/24/24 12:13 Temperature Source Oral 03/24/24 12:13 Pulse 76 03/24/24 12:13 Respiratory Rate 16 03/24/24 12:13 Blood Pressure 146/86 H 03/24/24 12:13 Blood Pressure Position Sitting 03/24/24 12:13 Pulse Oximetry 95 03/24/24 12:13 Oxygen Delivery Method Room Air 03/24/24 12:13 Oxygen Flow Rate 0 03/24/24 12:13 Lab/Test Results Lab/Test Results: POC Strep Test-[facility]EN(Rapid) Start: 03/24/24 12 :11 Freq: .Rapid Strep Test Status: Active Protocol: Document 03/24/24 12:25 CM (Rec: 03/24/24 12:25 CM [id number]) Strep test-[facility]EN(Rapid)-POC POC-Strep test-[facility]EN (Rapid) Negative POC-Strep test-C[facility]EN (Rapid) Negative Medical Decision Making 43-year-old male with a past medical history of previous alcohol use and the distant past, he has been dry for the last few years. When he was drinking he was drinking a few gallons of vodka per week. He has a past family history positive for esophageal cancer, and a father who is also an alcoholic. He presents today for evaluation of sore throat and difficulty swallowing. About a month ago he was seen and assessed here in the ED, strep test was negative at that time, it was suspected that this was a viral etiology then. Patient was discharged home with expectant supportive therapy. He states that since then the pain has slightly improved in his throat however he does have difficulty when he swallows water or eats food. He feels like there is something stuck and it is hard to get it down. He states that this is the case whenever he tries to drink. He has been eating less because of this. Despite this he states that he has had a weight gain recently though. No weight loss. No fever or chills. Patient does admit to a history of GERD, and does also state that when he lays down at night and sometimes during the day he will feel a burning sensation in his lower esophageal region. He also admits to some mild abdominal bloating over the last few months. He denies any vomiting or diarrhea. No focal abdominal pain no. Patient has no other complaints at this time. No other modifying factors. He denies any blood in his stool. He denies any vision changes or headache. He denies any severe bleeding. No other complaints. Additionally significant other reports that the patient will have quite severe breath on a fairly regular basis despite brushing his teeth and performing good oral care. Exam demonstrates well-appearing male, no mass on palpation of the neck, no stridor. No difficulty controlling secretions. Minimal erythema in the posterior pharynx, no tonsillar exudate, edema, inflammation of the uvula, or other abnormality. Differential is highest for GERD and esophagitis, however it also include potential Zenker diverticulum, esophageal mass. Will get CT imaging to evaluate further for this, and get basic blood work, will monitor closely and reassess. 3:[address] imaging negative for acute process of the chest abdomen neck. No evidence of large mass, thickening, or diverticulum. No other significant concerning abnormality. At this time differential remains highest for esophagitis. Will prescribe famotidine Protonix and Carafate. Unfortunately the patient is moving to [facility] [place] in about [address] a surgical referral to see if he can be squeezed in and time, but I have discussed with him that if he is not able to follow-up with surgery here, he will need further outpatient nonemergent workup when he is in [place]. I did do a large quantity with no refill for the famotidine Protonix and Carafate so as to help hold him over until he is able to get PCP follow-up in [place]. Patient otherwise remained stable. Recommend dietary modifications. Discussed red flags for which to return. I have extensively reviewed the treatment plan and discharge in structions with the patient and their family. I have addressed all patient concerns at this time. The patient and family was made aware of what symptoms to monitor for that would warrant a return to the emergency department. Discussed the plan with the patient and family, they demonstrate verbal understanding and agreement with our assessment and plan at this time. The documentation in this chart was dictated using [employer]rist[employer] dictation software. Please excuse any dictation errors. FINDINGS: CT SOFT TISSUES NECK: VISUALIZED PARANASAL SINUSES: There is mucosal thickening in the left frontoethm oidal recess. No true opacification of the frontal sinuses. Maxillary and sphenoid sinuses are clear as are most of the ethmoidal air cells. Left mastoid air cells unremarkable. There is partial sclerosis of the right mastoid air cells. NASOPHARYNX: Unremarkable ORODENTAL: Unremarkable. OROPHARYNX: Slight asymmetric prominence of the left tonsil HYPOPHARYNX: Unremarkable. Valleculae and epiglottis and aryepiglottic folds appear normal. VOCAL CORDS: Unremarkable. No masses evident. Subglottic airway appears unremarkable. THYROID GLAND: Unremarkable. Normal size and no obvious nodules. SALIVARY GLANDS: Unremarkable. No significant findings in the parotid and submandibular glands. LYMPH NODES: Small benign-appearing lymph nodes are noted in both sides the neck. There is no growth adenopathy evident in the neck and supraclavicular regions. OTHER: CHEST: LUNGS: There are a few tiny benign granulomas in the lung angel noted. No ominous nodules, infiltrates, nor pleural effusions.. MEDIASTINUM: No obvious hilar nor mediastinal adenopathy. Visualized thyroid unremarkable. CARDIAC: Heart size is normal. There is no pericardial effusion.Caliber of the thoracic aorta is within normal limits. OSSEOUS: No significant osseous lesions.No fractures. ABDOMEN: There is no ascites. LIVER: There are no obvious focal hepatic lesions evident of this noninfused study. GALLBLADDER/BILIARY: No obvious gallbladder pathology. CBD is not dilated. PANCREAS: No evidence of obvious pancreatic mass nor dilatation of the pancreatic duct. SPLEEN: Spleen is not enlarged. No obvious intrasplenic lesions. ADRENALS: There are no significant adrenal masses. KIDNEYS: No calculi nor hydronephrosis. No obvious solid renal masses. No cysts evident. ABDOMINAL AORTA: Abdominal aorta is not enlarged. LYMPH NODES: There is no retroperitoneal nor para-aortic adenopathy. ABDOMINAL WALL/GI: There are bilateral fat only containing inguinal hernias, right larger than left. There are no bowel loops in the hernias and no evidence of bowel obstruction. PELVIS: LYMPH NODES: There is no intrapelvic nor inguinal adenopathy. GI: No evidence of appendicitis.No evidence of sigmoid diverticulitis. URINARY BLADDER: No calculi nor obvious masses evident. The pelvic ureters are not dilated. REPRODUCTIVE: Prostate size normal. Seminal vesicles unremarkable. OSSEOUS: No significant osseous lesions. IMPRESSION: 1. No significant acute findings in the chest, abdomen, and pelvis 2. There are bilateral fat only containing inguinal hernias, right larger than left. There are no bowel loops within the hernia sacs. There is no evidence of bowel obstruction. 3. No significant findings in the soft tissues of the neck. Incidentally noted is some mucosal thickening in the left frontoethmoidal recess. Given the history here recommend outpatient esophagram study. Report discussed by myself to ER physician 03/24/2024 at 2:50 p.m. Quality:SDOH Health Related Social Needs: No Data to Display PFSH All Active Problems (Updated 03/24/24 @ 15:01 by Esvin Coats DO) Esophagitis (Acute) Finger swelling (Acute) Finger pain (Acute) Residual hemorrhoid tags (Acute ~03/13/20) removal 03/13/20 [place] Chronic anal fissure (Acute) Internal and external thrombosed hemorrhoids (Acute) Alcohol abuse (Chronic) Internal thrombosed hemorrhoids (Acute) Medical History Bleeding hemorrhoid Surgical History History of hemorrhoidectomy (~07/07/19) thrombosed, necrotic internal and external Social History Smoking/Tobacco Use Status: Current every day Tobacco Type: e-cigarettes Smoking risk assessment performed?: Yes Alcohol Intake: former Drug use: Rarely Substance use type: marijuana Details: PT DRANK earlier this month; did not knowing surgery Current gender identity: male Do you feel safe at home: Yes Do you feel safe in your relationship?: Yes
[2024-03-24 13:20] LABS: Abs Immature Grans 0.03 10^3/uL (0.0-0.06); Absolute Basophil Count 0.05 10^3/uL (0.0-0.2); Absolute Eosinophil Count 0.12 10^3/uL (0.0-0.7); Absolute Lymphocyte Count 1.88 10^3/uL (1.2-3.4); Absolute Monocyte Count 0.53 10^3/uL (0.1-0.8); Absolute Neutrophil Count 5.26 10^3/uL (1.2-6.7); Basophils % 0.6 %; Eosinophils % 1.5 %; HCT 47.6 % (40.0-50.0); HGB 16.9 g/dL (13.5-17.5); Immature Grans % 0.4 %; Lymphocytes % 23.9 %; MCH 30.1 pg (27.0-33.0); MCHC 35.5 % (32.0-36.0); MCV 85 fL (80-95); MPV 9.4 fL (8.0-11.0); Monocytes % 6.7 %; Neutrophils % 66.9 %; Platelet Count 287 10^3/uL (130-400); RBC 5.61 10^6/uL (4.36-5.78); RDW 11.7 % (11.8-14.1); RDW-SD 35.6 fL; WBC 7.87 10^3/uL (4.4-10.8)
[2024-03-24 13:33] LABS: ALT 38 U/L (16-63); AST 19 U/L (15-37); Albumin 3.9 g/dL (3.4-5.0); Alkaline Phosphatase 99 U/L (46-116); Anion Gap 6.3 mmol/L (3-11); BUN 13 mg/dL (7-18); Bilirubin, Total 0.66 mg/dL (0.2-1.0); CO2 28.7 mmol/L (21.0-32.0); CREATININE 0.7 mg/dL (0.70-1.30); Calcium 9.1 mg/dL (8.5-10.1); Chloride 105 mmol/L (98-107); Estimated GFR 118.72 (mL/min/1.73m2); Glucose 100 mg/dL (74-106); Potassium 4.4 mmol/L (3.5-5.1); Sodium 140 mmol/L (136-145); Total Protein 7.5 g/dL (6.4-8.2)
[2024-03-24] MEDS: Omnipaque 350 MG/ML 100 ML BTL IJ (13:33)
[2024-03-24] MEDS: Normal Saline - Diluent 50 ML VIAL IJ (13:34)
== END 2024-03-24 15:19 | disposition home or self-care (01) ==
PROVIDERS: Emergency Provider Student in an Organized Health Care Education/Training Program; PCP Nurse Practitioner Family
DX: K20.90 Esophagitis, unspecified without bleeding (principal)
CPT/HCPCS: 36415; 70491; 74177; 80053; 81025; 87880; 99285; 71260; 85025; 99284; J3490